=== PATIENT | male | born 1940 | race Caucasian/White ===

== ENCOUNTER 2017-07-22 08:51 | Inpatient (IN) | payer OTHER, MEDICARE ==
[~2017-07-22] VITALS: Ht 185.4 cm; Wt 73.5 kg
[~2017-07-22 08:51] MED LIST: ALLOPURINOL100 MG PO; ASPIRIN CHILDRE81 MG PO; ATENOLOL/HCTZ PO; ATENOLOL25 MG PO; ATENOLOL50 MG PO; ATORVASTATIN CA40 MG PO; BACTRIM DS 8001 TAB PO; CEPHALEXIN500 MG PO; CIPRO 500MG TA500 MG PO; CIPRO250 M1 PO; CIPRO500 M1 PO; CLINDAMYCIN HC300 MG PO; DIFLUCAN150 MG PO; ENALAPRIL10 MG PO; ENALAPRIL5 MG PO; FENOFIBRATE134 MG PO; FLOMAX(MONOGRA0.4 MG PO; FOSAMAX70 M1 PO; IBU800 MG PO; JANUMET 1000 MG1 TAB PO; LIPITOR 40MG40 MG PO; LOFIBRA160 MG PO; MAALOX PLUS30 ML PO; MACROBID100 MG PO; MECLIZINE HCL25 MG PO; MELOXICAM15 MG PO; MILK OF MAGNESI30 ML PO; MIRALAX17 GM PO; MOTRIN800 MG PO; MULTIVITAMIN1 TAB PO; NYSTATIN AND TR1 CR1 TOP; PERCOCET 325 MG1 TA2 PO; PERCOCET 5-3251 EACH PO; PRILOSEC 20MG C20 MG PO; PRILOSEC20 MG PO; SODIUM CHLORI1000 MG PO; STROVITE ONE1 TAB PO; TENORMIN 50MG T50 MG PO; VESICARE 5MG5 MG PO; VITAMIN D250000 UNIT PO; [UNRECOGNIZED DRUG - MIXTURE] PO
[2017-07-22 09:12] LABS: ABSOLUTE BASOPHIL COUNT 0 /CUMM (0.0-0.2); ABSOLUTE EOSINOPHIL COUNT 0.1 /CUMM (0.0-0.7); ABSOLUTE GRANULOCYTE CT 6.7 /CUMM (1.4-6.5); ABSOLUTE LYMPH COUNT 0.5 /CUMM (1.2-3.4); ABSOLUTE MONOCYTE COUNT 0.8 /CUMM (0.10-0.60); BASOPHIL % 0.2 % (0.0-2.0); EOSINOPHIL % 0.7 % (0-5); GRANULOCYTE % 83.5 % (42.2-75.2); HEMATOCRIT 35.6 % (42-52); MEAN CORPUSCULAR HGB 26.6 PG (27.0-31.0); MEAN CORPUSCULAR HGB CONC 33.3 G/DL (33.0-37.0); MEAN CORPUSCULAR VOLUME 79.8 FL (80.0-94.0); MEAN PLATELET VOLUME 7.1 FL (7.4-10.4); PLATELET COUNT 250 /CUMM (130-400); RBC DISTRIBUTION WIDTH 16.7 % (11.5-14.5); RED BLOOD CELL CT 4.46 /CUMM (4.70-6.10)
--- NOTE | 2017-07-22 09:21 | ED INFLUENZA/URI COMPLAINT ---
History of Present Illness General Chief Complaint: General Adult Stated Complaint: COLD S/S Source: patient, EMS Exam Limitations: no limitations Vital Signs & Intake/Output Vital Signs & Intake/Output Vital Signs Date Time Temp Pulse Resp B/P B/P Pulse O2 O2 Flow FiO2 Mean Ox Delivery Rate 07/22 1019 100.7 07/22 1019 100.7 07/22 0950 102.9 04/ 0856 95 07/22 0855 102.9 86 18 107/63 94 Room Air Allergies Coded Allergies: NO KNOWN ALLERGIES (10/18/15) Reconcile Medications Alendronate Sodium (Fosamax) 70 MG TABLET 1 TAB PO QFRI BONES (Reported) in the morning, at least 30 minutes before the first food, beverage, or medication of the day Allopurinol 100 MG TAB 1 TAB PO DAILY GOUT (Reported) Aspirin (Children's Aspirin) 81 MG TAB.CHEW 1 TAB PO DAILY HEART HEALTH ( Reported) Atenolol (Tenormin 50MG Tab) 50 MG TABLET 1 TAB PO DAILY BLOOD PRESSURE Atorvastatin Calcium (Lipitor) 40 MG TAB 1 TAB PO DAILY CHOLESTEROL (Reported ) Ciprofloxacin HCl (Cipro) 250 MG TABLET 1 TAB PO BID UTI Ciprofloxacin HCl (Cipro) 500 MG TABLET 1 TAB PO BID UTI Enalapril Maleate 5 MG TAB 1 TAB PO DAILY HEART (Reported) ERGOCALCIFEROL (VITAMIN D2) (Vitamin D2) 50,000 IU SGL 1 CAP PO QFRI SUPPLEMENT (Reported) Fenofibrate (Lofibra) 160 MG TAB 1 TAB PO DAILY CHOLESTEROL (Reported) Fluconazole (Diflucan) 150 MG TAB 1 TAB PO DAILY uti Magnesium Hydroxide (Milk Of Magnesia 30ML) 30 ML UDC 120 ML PO PRN GI ( Reported) Meclizine HCl 25 MG TABLET 1 TAB PO TIDPRN PRN VERTIGO Meloxicam 15 MG TAB 1 TAB PO DAILY PAIN (Reported) Metformin Hydrochloride/Lucretia (Janumet 1000 MG-50 MG) 1 TAB TAB 1 TAB PO BID NIDDM (Reported) Multivitamin (Multiple Vitamins) 1 TAB TAB 1 TAB PO DAILY SUPPLEMENT ( Reported) Omeprazole (Prilosec) 20 MG ECC 1 CAP PO DAILY GI (Reported) Oxycodone HCl/Acetaminophen (Percocet 5-325 MG Tablet) 1 EACH TABLET 1 TAB PO TID PRN PAIN Polyethylene Glycol 3350 (Miralax) 17 GM PWD 17 GM PO DAILY GI (Reported) mix with water, juice, soda, coffee or tea Sodium Chloride 1 GRA GRA 1 TAB PO BID SUPPLEMENT (Reported) Solifenacin Succinate (Vesicare) 5 MG TAB 1 TAB PO DAILY BLADDER SPASM Tamsulosin Hydrochloride (Flomax) 0.4 MG CAP 1 CAP PO DAILY PROSTATE ( Reported) Triage Note: PT STATES HIS NEIGHBOR HAS BEEN ILL AND HE THINKS HE MAY HAVE CAUGHT SOMETHING. PT STATES HE HAS A DRY COUGH AND DIARRHEA. PT REPORTS HAVING 3 BED SORES ON HIS BUTTOCKS. PT EATING AND DRINKING WITHOUT DIFFICULTY. Triage Nurses Notes Reviewed? yes Onset: Gradual Duration: day(s):, constant, continues in ED, waxing and waning Severity: moderate, severe HPI: Patient presents for evaluation of dry cough and sore throat that began Friday. Patient states that his home health aide was sick and feels he may have caught something from her. Patient states he had an episode of diarrhea last night. Patient denies muscle aches, weakness, headaches, vomiting. Patient currently has a Miller catheter in place so he is unable to state if he is having dysuria. patient's worsens with swallowing. Past History Travel History Traveled to [place] past 21 day No Medical History Any Pertinent Medical History? 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 No Review of Systems Review of Systems Constitutional: Reports: no symptoms. EENTM: Reports: see HPI. Respiratory: Reports: no symptoms. Cardiovascular: Reports: no symptoms. GI: Reports: see HPI. Genitourinary: Reports: no symptoms. Musculoskeletal: Reports: no symptoms. Skin: Reports: no symptoms. Neurological/Psychological: Reports: no symptoms. Hematologic/Endocrine: Reports: no symptoms. Immunologic/Allergic: Reports: no symptoms. All Other Systems: Reviewed and Negative Physical Exam Physical Exam Ears, Nose, Throat: sEE BELOW Comments: Gen.: Well-nourished, well-developed, no acute respiratory distress. Head: Normocephalic, atraumatic. Eyes: Normal inspection bilaterally Ears: Normal inspection bilaterally Nose: Normal inspection Throat/mouth : Tacky mucosa, mild oropharyngeal erythema without exudates or uvula deviation Neck: Supple, full range of motion, no goiter Heart: Regular rate and rhythm, no murmurs rubs or gallops Lungs: Rhonchi in the left lower lung field posteriorly with otherwise good air entry bilaterally Chest: Nontender Back: Normal range of motion Abdomen: Soft, nontender, nondistended, normal bowel sounds Extremities: Normal range of motion grossly, equal radial pulses, no cyanosis clubbing or edema Neurologic: Cranial nerves grossly intact, speech is clear Skin: warm and dry Psychiatric: Calm, cooperative, no apparent delusions or hallucinations Core Measures Sepsis Present: No (PT DID NOT MEET SIRS) Sepsis Focused Exam Completed? No Progress Differential Diagnosis: influenza, pneumonia, pharyngitis, viral syndrome, electrolyte abnormality Plan of Care: Orders Procedure Date/time Status Consistent Carbohydrate 1 07/22 L Complete Consistent Carbohydrate 1 07/22 D Active Misc Message 07/22 112 Active ED Holding Orders 07/22 112 Active Admit to inpatient 07/22 112 Active Vital Signs 07/22 112 Active Code Status 07/22 112 Active Add-on Test (ER Only) 07/22 1050 Active VIRAL CULTURE 07/22 0905 Active LACTIC ACID 07/22 0905 Complete RAPID VIRAL INFLUENZA A 07/22 09 Complete CULTURE,URINE 07/22 09 Active BLOOD CULTURE 07/22 0901 Active URINALYSIS 07/22 09 Complete COMPREHENSIVE METABOLIC PANEL 07/22 09 Complete CBC WITHOUT DIFFERENTIAL 07/22 09 Complete Current Medications Sig/Tk Start time Last Medication Dose Stop Time Status Admin Oseltamivir Phosphate 75 MG BID 07/22 1000 UNVr 07/22 (Tamiflu 75MG) 07/26 0959 0956 Laboratory Tests 07/22/17 0905: Anion Gap 10, Estimated GFR > 60, BUN/Creatinine Ratio 16.0, Glucose 94, Lactic Acid 1.5, Calcium 8.9, Total Bilirubin 0.5, AST 37, ALT 29, Alkaline Phosphatase 46, Total Protein 6.1 L, Albumin 3.2 L, Globulin 2.9, Albumin/Globulin Ratio 1.1, CBC w Diff MAN DIFF ORDERED, RBC 4.46 L, MCV 79.8 L, MCH 26.6 L, MCHC 33.3, RDW 16.7 H, MPV 7.1 L, Gran % 83.5 H, Lymphocytes % 5.9 L, Monocytes % 9.7 H, Eosinophils % 0.7, Basophils % 0.2, Absolute Granulocytes 6.7 H, Absolute Lymphocytes 0.5 L, Absolute Monocytes 0.8 H, Absolute Eosinophils 0.1 , Absolute Basophils 0, Platelet Estimate ADEQUATE, Poikilocytosis 1+, Anisocytosis 1+, Virus Culture Pending, Urinalysis LIGHT H, Urine Color YEL, Urine Clarity HAZY H, Urine pH 6.0, Ur Specific [place] <= 1.005, Urine Protein NEG, Urine Ketones NEG, Urine Nitrite POS H, Urine Bilirubin NEG, Urine Urobilinogen 0.2, Ur Leukocyte Esterase SMALL H, Ur Microscopic SEDIMENT EXAMINED, Urine RBC 1-3, Urine WBC 10-15 H, Ur Epithelial Cells RARE, Urine Bacteria MANY H, Urine Hemoglobin SMALL H, Urine Glucose NEG Microbiology 07/23 939 BLOOD: Blood Culture - RECD 07/22 929 BLOOD: Blood Culture - RECD 07/22 904 URINE ROUT: Urine Culture - RECD 07/22 904 NASOPHARYN: Influenza Virus A & B Rapid Smear - COMP INFLUENZA TYPE A Initial ED EKG: none Comments: 07/22/2017 11:28:33 AM I have ordered IV fluids for the patient's hyponatremia and to provide symptomatic care for his influenza and urinary tract infection. I have treated him with Tamiflu for his influenza and Rocephin for his urinary tract infection. Patient's case discussed with Dr. Duff. Departure Departure Disposition: STILL A PATIENT Condition: Stable Clinical Impression Primary Impression: Influenza A Secondary Impressions: Hyponatremia Urinary tract infection Qualifiers: Urinary tract infection type: catheter-associated UTI Indwelling urinary catheter type: indwelling urethral catheter Encounter type: initial encounter Qualified Codes: T83.511A - Infection and inflammatory reaction due to indwelling urethral catheter, initial encounter; N39.0 - Urinary tract infection , site not specified Referrals: Eloina Duvall MD (PCP/Family) Departure Forms: Customer Survey General Discharge Information Admission Note Spoke With: Essie Duff MD Documentation of Exam: Documentation of any treatments & extenuating circumstances including Concerns Regarding Discharge (functional status, medication knowledge or non-compliance, living conditions, etc.) that warrant an admission rather than observation: Patient presents for sore throat and cold symptoms. He is testing positive for influenza and also has a urinary tract infection and hyponatremia. This is resulted in an overall functionality depleted state and I feel the patient is now a poor candidate for outpatient management. I feel he would have great difficulty in compliance with outpatient treatment given the multiple medical issues he is currently suffering. He very likely would return in worse clinical condition. I feel he requires hospitalization for treatment of his influenza ( Tamiflu and supportive care), treatment for his hyponatremia (IV normal saline infusion, fluid restriction and serial sodium determinations) and treatment for his urinary tract infection (IV antibiotics, monitoring of urinalysis and urine culture). If patient's hyponatremia does not respond to treatment then nephrology consultation to be considered. The patient's urinary tract infection does not respond to treatment then urology or infectious disease consultation should be considered. Given the patient's advanced age and multiple medical comorbidities and multiple current active medical issues, physical therapy consultation should be considered to assess overall functional capacity and ability to ambulate. I feel this patient will require a multiple day hospitalization. Critical Care Note Critical Care Note Critical Care Time: 30-74 min
--- NOTE | 2017-07-22 09:41 | RADIOLOGY REPORT ---
EXAMINATION: XR PORTABLE CHEST CLINICAL INFORMATION: Fever, weakness COMPARISON: CT 09/08/2014 TECHNIQUE: Portable frontal view of the chest was obtained. FINDINGS: There is elevation of the left hemidiaphragm which is new from 2015. Adjacent streaky left basilar atelectasis is noted. The right lung appears grossly clear, though the apex is not well assessed due to patient positioning with overlying chin shadow. No significant pleural effusion or overt pulmonary edema. Cardiac size appears near the upper limits of normal though is suboptimally assessed due to patient rotation. No acute osseous findings are seen. IMPRESSION: Elevated left hemidiaphragm which is new from 2015; considerations include eventration, weakness, or paralysis. Adjacent left basilar atelectasis.
--- NOTE | 2017-07-22 12:58 | History & Physical ---
Joshua Dotson MD,Rangel 07/22/17 1258: General Information and HPI MD Statement: I have seen and personally examined JERROD PEÑALOZA and documented this H&P. 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 According to the patient and his son who was present in the room during the encounter, he was at his state of health past Friday. Patient's visiting nurse came and she is not feeling well. They both felt that patient caught something from her. He started developing some cough and sore throat. He also felt really weak and noticed hoarseness of his voice. Patient also noted some chills and temperature spikes at home. Reveiew of systems positive for one episode of diarrhea that happened last night. Review of system was negative for any headaches, acute visual changes, chest pain, shortness of breath, dyspnea on exertion, palpitations, racing of heart, nausea, vomiting, constipation, rash, recent change in medications, recent use of antibiotics or bilateral lower extremity edema. Allergies/Medications Allergies: Coded Allergies: NO KNOWN ALLERGIES (NONE 07/22/17) Home Med list Alendronate Sodium (Fosamax) 70 MG TABLET 1 TAB PO QFRI BONES (Reported) in the morning, at least 30 minutes before the first food, beverage, or medication of the day Allopurinol 100 MG TABLET 1 TAB PO DAILY GOUT (Reported) Aspirin (Aspirin*) 81 MG TAB.CHEW 1 TAB PO DAILY Heart (Reported) Atenolol 50 MG TABLET 1 TAB PO DAILY BP (Reported) Atorvastatin Calcium 40 MG TABLET 1 TAB PO DAILY Cholesterol (Reported) Enalapril Maleate 5 MG TABLET 1 TAB PO DAILY BP (Reported) Ergocalciferol (Vitamin D2) (Vitamin D2) 50,000 UNIT CAPSULE 1 CAP PO QW LOW VITAMIN (Reported) Fenofibrate,Micronized (Fenofibrate) 134 MG CAPSULE 1 CAP PO DAILY CHOLESTEROL (Reported) Meclizine HCl 25 MG TABLET 1 TAB PO TIDPRN PRN VERTIGO Omeprazole 20 MG CAPSULE.DR 1 CAP PO DAILY GERD (Reported) Oxybutynin Chloride 5 MG TABLET 1 TAB PO BID URINARY RETENTION (Reported) Oxycodone HCl/Acetaminophen (Percocet 5-325 MG Tablet) 1 EACH TABLET 1 TAB PO TID PRN PAIN Sitagliptin Phos/Metformin HCl (Janumet 50-500 MG Tablet) 50 MG-500 MG TABLET 1 TAB PO BID DM (Reported) Sodium Chloride 1,000 MG TABLET.CHARANJIT 1 TAB PO TID low sodium (Reported) Solifenacin Succinate (Vesicare) 5 MG TABLET 1 TAB PO DAILY URNARY ISSUES Tamsulosin HCl 0.4 MG CAP.ER.24H 1 CAP PO DAILY BPH (Reported) Compliance With Home Meds: GOOD Past History Travel History Traveled to [place] past 21 day No Medical History Neurological: NONE EENT: NONE Cardiovascular: hypertension, hyperlipidemia Respiratory: NONE Gastrointestinal: GERD, CONSTIPATION Hepatic: NONE Renal: INDWELLING MILLER CATH Musculoskeletal: chronic back pain, degen joint disease, gout, osteomyelitis of both right third and left second toes Psychiatric: NONE Endocrine: diabetes, GOUT BPH Blood Disorders: NONE Other Medical Hx: cellulitis req admission History of MRSA: Yes History of VRE: No History of CDIFF: No Surgical History Surgical History: PRIOR BEDSIDE DEBREIDMENT Past Family/Social History Family History Relations & Conditions if any MOTHER FH: Alzheimers disease FATHER FH: myocardial infarction Psychosocial History Services at Home: Nursing ETOH Use: denies use Illicit Drug Use: denies illicit drug use Review of Systems Review of Systems Constitutional: Reports: chills, fever. EENTM: Denies: visual changes. Cardiovascular: Denies: chest pain, palpitations. Respiratory: Denies: cough, short of breath. GI: Denies: abdominal pain, nausea, vomiting. Genitourinary: Denies: dysuria. Musculoskeletal: Reports: back pain, joint pain. Skin: Reports: lesions, rash (back). Exam & Diagnostic Data Last 24 Hrs of Vital Signs/I&O Vital Signs Date Time Temp Pulse Resp B/P B/P Pulse O2 O2 Flow FiO2 Mean Ox Delivery Rate 07/22 1303 97 07/22 1218 99.6 77 18 103/59 97 Room Air 07/22 1019 100.7 07/22 1019 100.7 07/22 0950 102.9 04 0856 95 07/22 0855 102.9 86 18 107/63 94 Room Air Intake & Output 07/22 1600 07/22 0800 07/22 0000 Intake Total 250 Output Total 850 Balance -600 Intake, Oral 250 Output, Urine 850 Patient 180 lb Weight Weight Reported by Patient Measurement Method Physical Exam General Appearance Alert, Oriented X3, Cooperative, No Acute Distress Skin skin breakdown lower back and buttock area HEENT Atraumatic Neck No JVD Cardiovascular Regular Rate, Normal S1, Normal S2, No Murmurs Lungs Clear to Auscultation, Normal Air Movement Abdomen Normal Bowel Sounds, Soft, No Tenderness, No Hepatospenomegaly, suprapubic Miller catheter in place Neurological Normal Speech, Normal Tone, Sensation Intact Extremities right and left-sided digit amputation secondary to osteomyelitis Vascular Normal Pulses Last 24 Hrs of Labs/Ignacio: Laboratory Tests 07/22/17 09: Anion Gap 10, Estimated GFR > 60, BUN/Creatinine Ratio 16.0, Glucose 94, Lactic Acid 1.5, Calcium 8.9, Total Bilirubin 0.5, AST 37, ALT 29, Alkaline Phosphatase 46, Total Protein 6.1 L, Albumin 3.2 L, Globulin 2.9, Albumin/Globulin Ratio 1.1, CBC w Diff MAN DIFF ORDERED, RBC 4.46 L, MCV 79.8 L, MCH 26.6 L, MCHC 33.3, RDW 16.7 H, MPV 7.1 L, Gran % 83.5 H, Lymphocytes % 5.9 L, Monocytes % 9.7 H, Eosinophils % 0.7, Basophils % 0.2, Absolute Granulocytes 6.7 H, Absolute Lymphocytes 0.5 L, Absolute Monocytes 0.8 H, Absolute Eosinophils 0.1 , Absolute Basophils 0, Platelet Estimate ADEQUATE, Poikilocytosis 1+, Anisocytosis 1+, Virus Culture Pending, Urinalysis LIGHT H, Urine Color YEL, Urine Clarity HAZY H, Urine pH 6.0, Ur Specific [place] <= 1.005, Urine Protein NEG, Urine Ketones NEG, Urine Nitrite POS H, Urine Bilirubin NEG, Urine Urobilinogen 0.2, Ur Leukocyte Esterase SMALL H, Ur Microscopic SEDIMENT EXAMINED, Urine RBC 1-3, Urine WBC 10-15 H, Ur Epithelial Cells RARE, Urine Bacteria MANY H, Urine Hemoglobin SMALL H, Urine Glucose NEG Microbiology 07/23 939 BLOOD: Blood Culture - RECD 07/22 929 BLOOD: Blood Culture - RECD 07/22 904 URINE ROUT: Urine Culture - RECD 07/22 904 NASOPHARYN: Influenza Virus A & B Rapid Smear - COMP INFLUENZA TYPE A Diagnostic Data CXR Results Elevated left hemidiaphragm which is new from 2015; considerations include Uniphyl recommended was to people outside hematocrit eventration, weakness, or paralysis. Adjacent left basilar atelectasis. Assessment/Plan Assessment: 77-year-old male with past medical history of hypertension, hyperlipidemia, diabetes mellitus, chronic back pain secondary to lumbar fusion multiple back surgeries (dependent on hoveround for movement), history of MRSA, 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 Vitals in emergency department patient afebrile with a MAXIMUM TEMPERATURE of 102.9, no tachycardia, no tachypnea, systolic blood pressure 1070 63 on admission which improved to 140/60- after 1 L of normal saline, oxygen saturation of 94-97% on room air. Labs significant for no leukocytosis, left shift 83.5 granulocytes but no bandemia, chronic anemia hemoglobin 11.9 hematocrit 35.6, low MCV, chronic hyponatremia sodium of 127, potassium 4, chloride 95, anion gap 10, BUN 8 and creatinine 0.5, UA positive for 10-15 WBCs, bacteria and positive nitrite. Positive influenza A Patient was admitted on general medicine so for the management of following problems Positive influenza A Patient has multiple comorbidities including age more than 65, and history of diabetes mellitus. He's found to have positive influenza A in emergency department. Patient was started on Tamiflu. We will adequately hydrate the patient and keeping him on droplet precautions. Chest x-ray also showed adjacent streaky left basilar atelectasis left lung. Patient does not have any signs of We will hold off on any antibiotics for now. Patient does have high- grade fever but there is no tachycardia, tachypnea, hypotension, leukocytosis or leukopenia therefore he does not meet the criteria for sepsis on admission. Decubitus ulcer, unstageable Patient has skin breakdown and unstageable decubitus ulcer at the gluteal region . Wound care was consulted. Patient will have regular dressing with collagenase and Xeroform. In the past patient's wound grew MRSA. [id number] diabetes mellitus Last hemoglobin A1c 5.4 in September 2016. We will repeat another hemoglobin A1c. We will currently start the patient on insulin sliding scale and check fingersticks. Chronic hyponatremia Patient has past medical history significant for hyponatremia. We will obtain urine lites, urine osmolarity and serum osmolarity. We'll continue the patient' s sodium chloride tablets. Pyuria/urinary retention Patient has chronic suprapubic indwelling folly catheter that is changed monthly. No leukocytosis. We'll hold off on antibiotics for now urine culture pending. Chronic medical conditions, GERD, hyperlipidemia, essential hypertension Continue with omeprazole, statin/fenofibrates and atenolol and enalapril Patient is full code Patient is on subcutaneous heparin for DVT prophylaxis Patient is on pain pathway Patient is on diabetic diet As Ranked By This Provider Problem List: 1. Hyponatremia 2. Influenza A Core Measures/Misc (01/05) Acute Coronary Syndrome ACS Diagnosis: No Congestive Heart Failure Congestive Heart Failure Diagnosis No Cerebrovascular Accident CVA/TIA Diagnosis: No VTE (View Protocol) VTE Risk Factors Immobility No Mechanical VTE Prophylaxis d/t N/A MechProphylax Ordered No VTE Pharm Prophylaxis d/t NA PharmProphylax ordered Sepsis (View protocol) Sepsis Present: No Lyle Torres MD 07/22/17 7366: Attending MD Review Statement Attending Statement Attending MD Statement: examined this patient, discuss w/resident/PA/LEAD BI DEVELOPER, agreed w/resident/PA/LEAD BI DEVELOPER, reviewed EMR data (avail), reviewed images, amended to note Attending Assessment/Plan: The patient is a 77 yo male with h/o HTN, HL ,DM2, chronic back pain (s/p fusion/surgeries), h/o osteomyelitis of foot (s/p amputation, MRSA), chronic miller catheter (h/o growing ESBL E coli) who presented in ED with c/o cough, sore throat, fever to 102 and malaise/weakness. Found to be flu positive ( influenza A) in ED along with some pyuria and possible UTI. Denies urinary symptoms. Does note some dyspnea w/o chest pain. Cough has been non-productive. Physical Exam: VS: T 102.9-99.6, P 77, R 18, BP 103/59, PO 97% RA HEENT: eyes- PERRLA, EOMI padmini- dry mucosa Neck: no JVD/bruits Chest: diffuse coarse rhonchi, no wheeze Cor: RRR nl S1, S2 w/o murm Abd: BS+, soft, NT Ext: no edema, pulses 1+, s/p left toe amp Neuro: alert & oriented x 3, non-focal exam, distal LE decreased sensory noted Labs/Tests- as above Impression/Plan: #Acute Influenza A Infection- with coarse rhonchi, significant cough. Fever and cough coincided and he may have had exposure at home. Also receive Ceftriaxone IV in ED. Plan: Admit to medical floor for close respiratory monitoring. Begin Tamiflu as per protocol Droplet precautions. [place] culture. #Pyuria/Urinary Retention- patient with chronic miller that is changed monthly. Has h/o several bacteria growing from prior cultures including ESBL Ecoli. No clear urinary symptoms. Fever may be secondary to influenza. No evidence of sepsis. Plan: Await urine culture- will hold further antibiotics. #Hyponatremia- has been chronic. Usually runs 130 and is now 127. Plan: Will continue salt tablets and follow. #Essential HTN- on Atenolol, Enalapril. BP slightly low, most likely to diminished po intake. Plan: Will continue meds if BP is OK. #DM2- on Sitagliptin/Metformin (Angie). Plan: Follow glucoscans and sliding scale insulin while in hospital. #GERD- on Omeprazole. Plan: Continue Omeprazole. #Hyperlipidemia- on Atorvastatin/Fenofibrate. Plan: Continue Atorvastatin/Fenofibrate. #Osteoporosis- on Alendronate. Plan: Will hold Alendronate while in hospital.
[2017-07-22] MEDS ORDERED: ALLOPURINOL100 M1 PO (14:16)
[2017-07-22] MEDS ORDERED: ENALAPRIL MALEAT5 M1 PO (14:16)
[2017-07-22] MEDS ORDERED: OXYBUTYNIN CHLOR5 M2 PO (14:16)
[2017-07-22] MEDS ORDERED: TAMSULOSIN HCL0.4 M1 PO (14:17)
[2017-07-22] MEDS ORDERED: OMEPRAZOLE20 M2 PO (14:17)
[2017-07-22] MEDS ORDERED: ATORVASTATIN CA40 M1 PO (14:17)
[2017-07-22] MEDS ORDERED: ATENOLOL50 M1 PO (14:17)
[2017-07-22 14:18] VITALS: BP 140/62
[2017-07-22] MEDS ORDERED: FENOFIBRATE134 M1 PO (14:18)
[2017-07-22] MEDS ORDERED: JANUMET 50-5001 EACH PO (14:18)
[2017-07-22] MEDS ORDERED: ASPIRIN81 M4 PO (14:19)
--- NOTE | 2017-07-22 16:39 | Admission Certification ---
Admission Certification Certification Statement - As attending physician, I certify that at the time of - admission, based on clinical presentation, severity of - symptoms, need for further diagnostic testing and - therapeutic interventions, and risk of adverse outcomes - without in-hospital treatment, in my clinical assessment, - this patient requires an acute hospital stay for a minimum - of two nights or longer. I have also considered psychsocial - factors such as support system, advanced age, financial - issues, cognitive issues, and failed out-patient treatments, - past re-admission history, safety of patient, and lack of - compliance as applicable. Specific rationale supporting this admission is: The patient presents with fever 102+, cough and congestion. Found to have acute influenza A, weakness, chronic abrams catheter with possible infection. Admitted for respiratory monitoring, received IV Abx in ED for possible UTI, baum culture.
[2017-07-22] MEDS ORDERED: VESICARE5 M1 PO (16:44)
[2017-07-22 21:16] VITALS: BP 136/66
[2017-07-23 06:20] VITALS: BP 112/66
--- NOTE | 2017-07-23 07:46 | PN- Housestaff ---
Ul Mauri STORY,[facility] 07/23/17 0746: Subjective Follow-up For: Acute Influenza A Infection Pyuria/Urinary Retention Chronic hyponatremia Complaints: no complaints Subjective: Patient remained afebrile overnight. No episodes of tachycardia or tachypnea. Systolic blood pressure 112 to 130s and diastolic in 60s, oxygen saturation of 95-96% on room air Review of Systems Constitutional: Denies: chills, fever. EENTM: Denies: visual changes. Cardiovascular: Denies: chest pain, palpitations. Respiratory: Denies: cough, short of breath. Gastrointestinal: Denies: abdominal pain, nausea, vomiting. Genitourinary: Denies: dysuria. Musculoskeletal: Denies: back pain. Objective Last 24 Hrs of Vital Signs/I&O Vital Signs Date Time Temp Pulse Resp B/P B/P Pulse O2 O2 Flow FiO2 Mean Ox Delivery Rate 07/23 0620 98.4 69 18 112/66 95 Room Air 07/22 2116 98.1 66 18 136/66 96 Room Air 07/22 2051 72 136/66 07/22 2050 72 136/66 07/22 1418 98.7 90 20 140/62 94 Room Air 07/22 1332 97 Room Air Room Air 07/22 1303 97 07/22 1218 99.6 77 18 103/59 97 Room Air / 1019 100.7 / 1019 100.7 / 0950 102.9 / 0856 95 / 0855 102.9 86 18 107/63 94 Room Air Intake & Output 07/23 0800 07/23 0000 03 1600 Intake Total 1500 250 Output Total 2150 5500 1650 Balance -2150 -4000 -1400 Intake, Oral 1500 250 Number 0 0 Bowel Movements Output, Urine 2150 5500 1650 Patient 192 lb 192 lb Weight Weight Bed scale Bed scale Measurement Method Physical Exam General Appearance: Alert, Oriented X3, Cooperative, No Acute Distress Skin: skin breakdown lower back and buttock area HEENT: Atraumatic Neck: No JVD Cardiovascular: Regular Rate, Normal S1, Normal S2, No Murmurs Lungs: Normal Air Movement, Congested with occasional rales Abdomen: Normal Bowel Sounds, Soft, No Tenderness, suprapubic Giraldo catheter in place Neurological: Normal Speech, Normal Tone, Sensation Intact Extremities: No Edema, right and left-sided digit amputation secondary to osteomyelitis Current Medications: Current Medications Sig/Tk Start time Last Medication Dose Route Stop Time Status Admin Acetaminophen 650 MG Q4P PRN 07/22 1530 AC PO Acetaminophen 0 .STK-MED ONE 07/22 0952 DC IV Acetaminophen 1,000 MG ONCE ONE 07/22 0930 DC 07/22 N/A 1 UNIT IV 07/22 0944 0950 Alendronate Sodium 70 MG QFRI 07/25 0700 AC PO Allopurinol 100 MG DAILY 07/22 1428 AC 07/22 PO 2052 Aspirin 81 MG DAILY 07/23 1000 AC PO Atenolol 50 MG DAILY 07/22 1429 AC 07/22 PO 205 Atorvastatin Calcium 40 MG 1700 07/22 1700 AC 07/22 PO 2033 Benzonatate 100 MG TID 07/22 1612 AC 07/22 PO 2101 Ceftriaxone Sodium 0 .STK-MED ONE 07/22 1119 DC .ROUTE Ceftriaxone Sodium 1,000 MG ONCE ONE 07/22 1100 DC 07/22 IV 07/22 1101 1116 Collagenase 1 BRYCE DAILY 07/22 1430 AC 07/22 TOP 1645 Fenofibrate 145 MG DAILY 07/23 1000 AC PO Guaifenesin/ 10 ML Q6P PRN 07/22 1615 AC Dextromethorphan PO Heparin Sodium 5,000 UNIT Q8 07/22 1524 AC 07/23 (Porcine) SC 0613 Insulin Aspart 0 TIDAC 07/22 1700 AC SC Lisinopril 5 MG DAILY 07/23 1000 AC PO Non-Formulary 0 SEE ADMIN CRITERIA 07/22 1430 CAN Medication ANY Omeprazole 20 MG DAILY AC 07/22 1431 AC 07/23 PO 0613 Oseltamivir Phosphate 75 MG BID 07/22 1000 AC 07/22 PO 07/26 0959 2101 Oxybutynin Chloride 5 MG BID 07/22 1431 AC 07/22 PO 2100 Sodium Chloride 1,000 MG TID 07/22 1600 AC 07/22 PO 2102 Sodium Chloride 1,000 ML BOLUS ONE 07/22 0930 DC 07/22 IV 07/22 1129 0950 Tamsulosin HCl 0.4 MG DAILY 07/22 1431 AC 07/22 PO 2050 Last 24 Hrs of Lab/Ignacio Results Last 24 Hrs of Labs/Mics: Laboratory Tests 07/23/17 0711: Sodium Pending, Potassium Pending, Chloride Pending, Carbon Dioxide Pending, Anion Gap Pending, BUN Pending, Creatinine Pending, BUN/Creatinine Ratio Pending 07/22/17 1618: Anion Gap 11, Estimated GFR > 60, BUN/Creatinine Ratio 16.0 07/22/17 1606: Urine Osmolality 165 L, Ur Random Creatinine 11.1, Ur Random Sodium 36, Ur Random Potassium 7.8, Fraction Sodium Excret 1.3 H 07/22/17 0905: Anion Gap 10, Estimated GFR > 60, BUN/Creatinine Ratio 16.0, Glucose 94, Hemoglobin A1c Pending, Serum Osmolality 264 L, Lactic Acid 1.5, Calcium 8.9, Total Bilirubin 0.5, AST 37, ALT 29, Alkaline Phosphatase 46, Total Protein 6.1 L, Albumin 3.2 L, Globulin 2.9, Albumin/Globulin Ratio 1.1, CBC w Diff MAN DIFF ORDERED, RBC 4.46 L, MCV 79.8 L, MCH 26.6 L, MCHC 33.3, RDW 16.7 H, MPV 7.1 L, Gran % 83.5 H, Lymphocytes % 5.9 L, Monocytes % 9.7 H, Eosinophils % 0.7, Basophils % 0.2, Absolute Granulocytes 6.7 H, Absolute Lymphocytes 0.5 L, Absolute Monocytes 0.8 H, Absolute Eosinophils 0.1, Absolute Basophils 0, Platelet Estimate ADEQUATE, Poikilocytosis 1+, Anisocytosis 1+, Virus Culture Pending, Urinalysis LIGHT H, Urine Color YEL, Urine Clarity HAZY H, Urine pH 6.0, Ur Specific [place] <= 1.005, Urine Protein NEG, Urine Ketones NEG, Urine Nitrite POS H, Urine Bilirubin NEG, Urine Urobilinogen 0.2, Ur Leukocyte Esterase SMALL H, Ur Microscopic SEDIMENT EXAMINED, Urine RBC 1-3, Urine WBC 10 -15 H, Ur Epithelial Cells RARE, Urine Bacteria MANY H, Urine Hemoglobin SMALL H, Urine Glucose NEG Microbiology 07/22 151 LOWER RESP: Respiratory Culture - COLB 07/22 151 LOWER RESP: Gram Stain - COLB 07/23 939 BLOOD: Blood Culture - RECD 07/22 929 BLOOD: Blood Culture - RECD 07/22 904 URINE ROUT: Urine Culture - RECD 07/22 904 NASOPHARYN: Influenza Virus A & B Rapid Smear - COMP INFLUENZA TYPE A Lines/Diet/Fluids Fluids/Infusions: none Lines: peripheral lines Restraints: none Assessment/Plan Assessment: 77-year-old male with past medical history of hypertension, hyperlipidemia, diabetes mellitus, chronic back pain secondary to lumbar fusion multiple back surgeries (dependent on hoveround for movement), history of MRSA, 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 Patient was admitted on general medicine so for the management of following problems Positive influenza A Patient has multiple comorbidities including age more than 65, and history of diabetes mellitus. He's found to have positive influenza A in emergency department. Patient was started on Tamiflu. We will adequately hydrate the patient and keeping him on droplet precautions. Chest x-ray also showed adjacent streaky left basilar atelectasis left lung. Patient does not have any signs of We will hold off on any antibiotics for now. Did not have any high- grade fever overnight, no tachycardia, tachypnea, hypotension, leukocytosis or leukopenia therefore he does not meet the criteria for sepsis on admission. Decubitus ulcer, unstageable Patient has skin breakdown and unstageable decubitus ulcer at the gluteal region . Wound care was consulted. Patient will have regular dressing with collagenase and Xeroform. In the past patient's wound grew MRSA. Epi-gkvttte-trzzxihtm diabetes mellitus Last hemoglobin A1c 5.4 in September 2016. We will repeat another hemoglobin A1c. We will currently start the patient on insulin sliding scale and check fingersticks. Chronic hyponatremia Patient has past medical history significant for hyponatremia. Serum osmolality low, low urine osmolality, and fractional excretion of sodium 1.3. Patient has euvolemic hypotonic hyponatremia. We'll continue the patient's sodium chloride tablets. Pyuria/urinary retention Patient has chronic suprapubic indwelling folly catheter that is changed monthly. No leukocytosis. We'll hold off on antibiotics for now urine culture growing gram negative rods, which can be colonization. Urology consult placed. Chronic medical conditions, GERD, hyperlipidemia, essential hypertension Continue with omeprazole, statin/fenofibrates and atenolol and enalapril Patient is full code Patient is on subcutaneous heparin for DVT prophylaxis Patient is on pain pathway Patient is on diabetic diet Problem List: 1. Hyponatremia 2. Influenza A 3. Decubitus ulcer Pain Ratin Pain Location: NA Pain Goal: Pain 4 or less Pain Plan: Continue current pain medications Tomorrow's Labs & Rationales: BEP IF sodium has to change significantly DVT/Prophylaxis: pharmacological Lyle Torres MD 07/23/17 2229: Attending MD Review Statement Attending Statement Attending MD Statement: examined this patient, discuss w/resident/PA/ROLLER PRINTER, agreed w/resident/PA/ROLLER PRINTER, reviewed EMR data (avail), discussed with nursing, discussed with case mgmt, amended to note Attending Assessment/Plan: The patient appears slightly improved today. Still with coarse rhonchi. No urinary symptoms. Giraldo is due to be changed. Will contact Urology to see if they wish us to change here, or whether urology is needed. Await final urine cultures, however suspect colonization. Continue Tamiflu and monitory symptoms. The patient has home care set-up and prefers to return home when able. Case management contacting his home agency.
[2017-07-23 14:02] VITALS: BP 100/64
[2017-07-23 22:00] VITALS: BP 98/50
[2017-07-24 00:37] VITALS: BP 96/56
[2017-07-24 07:27] VITALS: BP 106/56
--- NOTE | 2017-07-24 07:38 | PN- Housestaff ---
See Addendum Subjective Follow-up For: Acute Influenza A Infection Pyuria/Urinary Retention Chronic hyponatremia Complaints: no complaints Subjective: Patient remained afebrile overnight. No episodes of tachycardia or tachypnea. Systolic blood pressure 96 to 106 and diastolic in 50-60s, oxygen saturation of 94-95% on room air Review of Systems Constitutional: Denies: chills, fever. EENTM: Denies: visual changes. Cardiovascular: Denies: chest pain, palpitations. Respiratory: Reports: cough. Denies: short of breath. Gastrointestinal: Denies: abdominal pain, nausea. Musculoskeletal: Reports: back pain. Denies: joint pain. Objective Last 24 Hrs of Vital Signs/I&O Vital Signs Date Time Temp Pulse Resp B/P B/P Pulse O2 O2 Flow FiO2 Mean Ox Delivery Rate 07/24 0727 97.9 53 20 106/56 95 Room Air 07/24 0037 98.3 58 20 96/56 94 Room Air 07/24 0000 Room Air 07/23 2200 97.9 50 20 98/50 97 Room Air 07/23 1402 97.4 75 20 100/64 96 Room Air 07/23 1231 98.4 69 18 112/66 04/04 1231 98.4 69 18 112/66 04/04 1052 98.4 69 18 112/66 Intake & Output 07/24 1600 /05 0800 07/24 0000 Intake Total 220 1000 Output Total 2050 2500 Balance -1830 -1500 Intake, Oral 220 1000 Output, Urine 2049 2500 Patient 165 lb Weight Physical Exam General Appearance: Alert, Oriented X3, Cooperative, No Acute Distress Skin: skin breakdown lower back and buttock area HEENT: Atraumatic Neck: No JVD Cardiovascular: Regular Rate, Normal S1, Normal S2, No Murmurs Lungs: occasional rales at the lung bases Abdomen: Normal Bowel Sounds, Soft, No Tenderness, suprapubic Giraldo catheter in place Neurological: Normal Speech, Normal Tone, Sensation Intact Extremities: No Cyanosis, No Edema, right and left-sided digit amputation secondary to osteomyelitis Vascular: Normal Pulses Current Medications: Current Medications Sig/Tk Start time Last Medication Dose Route Stop Time Status Admin Acetaminophen 650 MG Q4P PRN 07/22 1530 AC 07/24 PO 0553 Allopurinol 100 MG DAILY 07/22 1428 AC 07/23 PO 1053 Aspirin 81 MG DAILY 07/23 1000 AC 07/23 PO 1053 Atenolol 50 MG DAILY 07/22 1429 AC 07/23 PO 1231 Atorvastatin Calcium 40 MG 1700 07/22 1700 AC 07/23 PO 1745 Benzonatate 100 MG TID 07/22 1612 AC 07/23 PO 2104 Collagenase 1 BRYCE DAILY 07/22 1430 AC 07/23 TOP 1053 Fenofibrate 145 MG DAILY 07/23 1000 AC 07/23 PO 1052 Guaifenesin 10 ML .STK-MED ONE 07/24 0004 DC PO 07/24 0005 Guaifenesin/ 10 ML Q6P PRN 07/22 1615 AC 07/24 Dextromethorphan PO 0008 Heparin Sodium 5,000 UNIT Q8 07/22 1524 AC 07/24 (Porcine) SC 0556 Insulin Aspart 0 TIDAC 07/22 1700 AC SC Lisinopril 5 MG DAILY 07/23 1000 AC 07/23 PO 1052 Omeprazole 20 MG DAILY AC 07/22 1431 AC 07/24 PO 0553 Oseltamivir Phosphate 75 MG BID 07/22 1000 AC 07/23 PO 07/26 0959 2104 Oxybutynin Chloride 5 MG BID 07/22 1431 AC 07/23 PO 2104 Sodium Chloride 1,000 MG TID 07/22 1600 AC 07/23 PO 2104 Tamsulosin HCl 0.4 MG DAILY 07/22 1431 AC 07/23 PO 1231 Lines/Diet/Fluids Fluids/Infusions: none Lines: peripheral lines Restraints: none Assessment/Plan Assessment: 77-year-old male with past medical history of hypertension, hyperlipidemia, diabetes mellitus, chronic back pain secondary to lumbar fusion multiple back surgeries (dependent on hoveround for movement), history of MRSA, 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 Patient was admitted on general medicine so for the management of following problems Positive influenza A Patient has multiple comorbidities including age more than 67, and history of diabetes mellitus. He's found to have positive influenza A in emergency department. Patient was started on Tamiflu, currently day 3. We will adequately hydrate the patient and keeping him on droplet precautions. Chest x-ray also showed adjacent streaky left basilar atelectasis left lung. Patient does not have any signs of We will hold off on any antibiotics for now. Did not have any high-grade fever overnight, no tachycardia, tachypnea, hypotension, leukocytosis or leukopenia therefore he does not meet the criteria for sepsis on admission. Decubitus ulcer, unstageable Patient has skin breakdown and unstageable decubitus ulcer at the gluteal region . Wound care was consulted. Patient will have regular dressing with collagenase and Xeroform. In the past patient's wound grew MRSA. Hgz-iurbxlc-rtuldtznx diabetes mellitus Last hemoglobin A1c 5.4 in September 2016. We will repeat another hemoglobin A1c. We will keep the patient on insulin sliding scale and check fingersticks. Chronic hyponatremia Patient has past medical history significant for hyponatremia. Serum osmolality low, low urine osmolality, and fractional excretion of sodium 1.3. Patient has euvolemic hypotonic hyponatremia. We'll continue the patient's sodium chloride tablets. Pyuria/urinary retention Patient has chronic suprapubic indwelling folly catheter that is changed monthly. No leukocytosis. We'll hold off on antibiotics for now urine culture growing gram negative rods, which can be colonization. Urology consult pending. Chronic medical conditions, GERD, hyperlipidemia, essential hypertension Continue with omeprazole, statin/fenofibrates and atenolol and enalapril Patient is full code Patient is on subcutaneous heparin for DVT prophylaxis Patient is on pain pathway Patient is on diabetic diet Problem List: 1. Hyponatremia 2. Influenza A 3. Suprapubic catheter dysfunction Pain Ratin Pain Location: BUTTOCK AREA Pain Goal: Pain 4 or less Pain Plan: Continue current pain meds Tomorrow's Labs & Rationales: Not needed DVT/Prophylaxis: pharmacological
--- NOTE | 2017-07-24 07:38 | Discharge Summary ---
Visit Information Visit Dates Admission Date: 07/22/17 Discharge Date: 07/27/17 Hospital Course Course Attending Physician: Lyle Torres MD Primary Care Physician: Eloina Duvall MD Consulting Request: Consulting Specialty: Urology Consulting Physician: Dr. Elizalde Reason for Consult: Giraldo catheter change Hospital Course: 77-year-old male with past medical history of hypertension, hyperlipidemia, diabetes mellitus, chronic back pain secondary to lumbar fusion multiple back surgeries (dependent on hoveround for movement), history of MRSA, 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 Vitals in emergency department patient afebrile with a MAXIMUM TEMPERATURE of 102.9, no tachycardia, no tachypnea, systolic blood pressure 1070 63 on admission which improved to 140/60- after 1 L of normal saline, oxygen saturation of 94-97% on room air. Labs significant for no leukocytosis, left shift 83.5 granulocytes but no bandemia, chronic anemia hemoglobin 11.9 hematocrit 35.6, low MCV, chronic hyponatremia sodium of 127, potassium 4, chloride 95, anion gap 10, BUN 8 and creatinine 0.5, UA positive for 10-15 WBCs, bacteria and positive nitrite. Positive influenza A Patient was admitted on general medicine so for the management of following problems Positive influenza A Patient has multiple comorbidities including age more than 67, and history of diabetes mellitus. He's found to have positive influenza A in emergency department. Patient was started on Tamiflu. We adequately hydrated the patient and keeping him on droplet precautions. Chest x-ray also showed adjacent streaky left basilar atelectasis left lung. Patient did not have any signs of infection, therefore we held off off on any antibiotics during hospitalization. He did not meet the criteria for sepsis on admission. Decubitus ulcer, unstageable Patient had skin breakdown and unstageable decubitus ulcer at the gluteal region. Wound care was consulted. Patient will have regular dressing with collagenase and Xeroform. In the past patient's grew MRSA from wound culture. Patient was placed on contact precautions for MRSA. Cky-pgtsotn-fjizgtwxh diabetes mellitus Last hemoglobin A1c 5.4 in September 2016. Repeat hemoglobin A1c was 6.0. We kept the patient on insulin sliding scale and check fingersticks. Chronic hyponatremia Patient has past medical history significant for hyponatremia. Serum osmolality low, low urine osmolality, and fractional excretion of sodium 1.3. Patient had euvolemic hypotonic hyponatremia. We continued the patient's sodium chloride tablets. Pyuria/urinary retention Patient has chronic suprapubic indwelling folly catheter that is changed monthly. No leukocytosis on CBC. We'll had off on antibiotics and attributed due to gram-negative rods in urine to colonization. Urology consult was placed, and his Giraldo catheter changed on 07/24/17. He will F/U with Dr. Elizalde in 1 month for next suprapubic catheter change. Chronic medical conditions, GERD, hyperlipidemia, essential hypertension Be continued with omeprazole, statin/fenofibrates and atenolol and enalapril Patient is full code Patient is on subcutaneous heparin for DVT prophylaxis Patient is on pain pathway Patient is on diabetic diet Complications: None Allergies: Coded Allergies: NO KNOWN ALLERGIES (NONE 07/22/17) Significant Procedures: SERVICE DATE: 07/22/17 EXAM TYPE: RAD - XRY-PORTABLE CHEST XRAY FINDINGS: There is elevation of the left hemidiaphragm which is new from 2014. Adjacent streaky left basilar atelectasis is noted. The right lung appears grossly clear, though the apex is not well assessed due to patient positioning with overlying chin shadow. No significant pleural effusion or overt pulmonary edema. Cardiac size appears near the upper limits of normal though is suboptimally assessed due to patient rotation. No acute osseous findings are seen. IMPRESSION: Elevated left hemidiaphragm which is new from 2014; considerations include eventration, weakness, or paralysis. Adjacent left basilar atelectasis. Disposition Summary Disposition Principal Diagnosis: Positive influenza A Unstageable decubitus ulcer on buttock area Pyuria/bacteriuria and urinary retention Acute on chronic hyponatremia Additional Diagnosis: History of [id number]-qdatigeyn diabetes mellitus Chronic indwelling folly catheter Chronic medical conditions, GERD, hyperlipidemia, essential hypertension Discharge Disposition: home health services Discharge Instructions General Discharge Information Code Status: Full Code Patient's Diet: Diabetic diet Patient's Activity: As tolerated Follow-Up Instructions/Appts: Follow-up with PCP after discharge Follow-up with urology after discharge in one month for F/U. Your suprpubic tube was changed on 07/24/17 Medications at Discharge Discharge Medications: Continue taking these medications: Alendronate Sodium (Fosamax) 70 MG TABLET 1 Tablet ORAL EVERY FRIDAY Instructions: in the morning, at least 30 minutes before the first food, beverage, or medication of the day Comments: DID NOT TAKE IN THE HOSPITAL Sodium Chloride (Sodium Chloride) 1,000 MG TABLET.CHARANJIT 1 Tablet ORAL THREE TIMES DAILY Comments: Last Taken:07/27/17 Time:0900 AM Ergocalciferol (Vitamin D2) (Vitamin D2) 50,000 UNIT CAPSULE 1 Capsule ORAL Once a Week Comments: DID NOT ADMINISTER AT THE HOSPITAL Meclizine HCl (Meclizine HCl) 25 MG TABLET 1 Tablet ORAL THREE TIMES A DAY NEEDED as needed for VERTIGO Qty = 30 Comments: DID NOT ADMINISTER AT THE HOSPITAL Oxybutynin Chloride (Oxybutynin Chloride) 5 MG TABLET 1 Tablet ORAL TWICE DAILY Qty = 56 Comments: Last Taken:07/27/17 Time:0900 AM Enalapril Maleate (Enalapril Maleate) 5 MG TABLET 1 Tablet ORAL DAILY Qty = 28 Comments: Last Taken:07/27/17 Time:0900 AM USED LISINOPRIL SUBSTIUTION Allopurinol (Allopurinol) 100 MG TABLET 1 Tablet ORAL DAILY Qty = 28 Comments: Last Taken:07/27/17 Time:0900 AM Atenolol (Atenolol) 50 MG TABLET 1 Tablet ORAL DAILY Qty = 28 Comments: Last Taken:07/27/17 Time:0900 AM Tamsulosin HCl (Tamsulosin HCl) 0.4 MG CAP.ER.24H 1 Capsule ORAL DAILY Qty = 28 Comments: Last Taken:07/27/17 Time:0900 AM Atorvastatin Calcium (Atorvastatin Calcium) 40 MG TABLET 1 Tablet ORAL DAILY Qty = 28 Comments: Last Taken:07/26/17 Time:1600 Omeprazole (Omeprazole) 20 MG CAPSULE.DR 1 Capsule ORAL DAILY Qty = 28 Comments: Last Taken:07/27/17 Time:0600 AM Fenofibrate,Micronized (Fenofibrate) 134 MG CAPSULE 1 Capsule ORAL DAILY Qty = 28 Comments: Last Taken:07/27/17 Time:0900 AM Sitagliptin Phos/Metformin HCl (Janumet 50-500 MG Tablet) 50 MG-500 MG TABLET 1 Tablet ORAL TWICE DAILY Qty = 56 Comments: DID NOT ADMINISTER AT THE HOSPITAL Aspirin (Aspirin*) 81 MG TAB.CHEW 1 Tablet ORAL DAILY Comments: Last Taken:07/27/17 Time:0900 AM Start taking the following new medications: Nystatin (Nystatin) 100,000 UNIT/GRAM CREAM..G. 1 Application On the skin THREE TIMES DAILY Qty = 15 No Refills Instructions: apply to affected area(s). Comments: Last Taken:07/27/17 Time:0900 AM Copies To: Eloina STORY,Lissette Elizalde MD,Marcel Carver MD Review Statement Documenting Attending: Lyle Torres MD Other Findings: The patient was seen by me prior to discharge and by Dr. Delgadillo for last 2 days of hospital stay. Agree with the plan of care as outlined.
--- NOTE | 2017-07-24 08:56 | Patient Discharge Instructions ---
Discharge Instructions General Discharge Information You were seen/treated for: Positive influenza A Unstageable decubitus ulcer on buttock area Pyuria/bacteriuria and urinary retention Acute on chronic hyponatremia Other wound care: Please have regular dressing with collagenase and Xeroform Special Instructions: Follow-up with PCP after discharge Follow-up with urology after discharge Diet Continue normal diet: No Recommended Diet: Diabetic Activity Activity Self Limited: Yes Acute Coronary Syndrome Inclusion Criteria At DC or during hospital stay patient has or had the following: ACS DIAGNOSIS No Discharge Core Measures Meds if any: Prescribed or Continued at Discharge Meds if any: NOT Prescribed or Continued at Discharge Congestive Heart Failure Inclusion Criteria At DC or during hospital stay patient has or had the following: CHF DIAGNOSIS No Discharge Core Measures Meds if any: Prescribed or Continued at Discharge Meds if any: NOT Prescribed or Continued at Discharge Cerebrovascular accident Inclusion Criteria At DC or during hospital stay patient has or had the following: CVA/TIA Diagnosis No Discharge Core Measures Meds if any: Prescribed or Continued at Discharge Meds if any: NOT Prescribed or Continued at Discharge Venous thromboembolism Inclusion Criteria VTE Diagnosis No VTE Type NONE VTE Confirmed by (Test) NONE Discharge Core Measures - Per Current guidelines, there needs to be overlap - treatment for the first 5 days of Warfarin therapy. - If discharged on Warfarin prior to 5 days of - overlap therapy, the patient will need to be - assessed for post discharge needs including - *Post discharge parental anticoagulation - *Warfarin and/or parental anticoagulation education - *Follow up date to check INR post discharge At least 5 days overlap therapy as Inpatient No Meds if any: Prescribed or Continued at Discharge Note: Overlap Therapy is Warfarin and Anticoagulant Meds if any: NOT Prescribed or Continued at Discharge
[2017-07-24 09:30] VITALS: BP 80/62
[2017-07-24 10:30] VITALS: BP 90/60
--- NOTE | 2017-07-24 13:31 | PN- Urology ---
Surgical Brief Attending Note Brief Attending Note: Patient admitted with influenza. 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 The tube is changed monthly in the office. It was due to be changed today. Today at bedside his suprapubic tube was changed. 18 fr abrams used Plan: 1. Office f/u in 1 month for next suprapubic tube change
[2017-07-24 15:25] VITALS: BP 98/60
[2017-07-24 20:53] VITALS: BP 112/64
[2017-07-25 07:01] VITALS: BP 118/68
--- NOTE | 2017-07-25 07:16 | PN- Housestaff ---
Ila Timmons 07/25/17 0716: Subjective Follow-up For: Acute Influenza A Infection Pyuria/Urinary Retention Chronic hyponatremia Tele-Events Since Last Visit: Not on monitor Subjective: Patient seen and examined at bedside. He states he is still coughing. He denies CP, SOB. Of note he remains afebrile. He was seen by Dr. Elizalde, and his suprapubic catheter was changed yesterday, with F/U in a month. Review of Systems Constitutional: Denies: chills, fever. EENTM: Denies: visual changes. Cardiovascular: Denies: chest pain, orthopena, palpitations. Respiratory: Reports: cough. Denies: short of breath, sputum production, wheezing. Gastrointestinal: Denies: abdominal pain, nausea, vomiting. Genitourinary: Reports: no symptoms. Neurological/Psychological: Denies: headache, numbness. Objective Last 24 Hrs of Vital Signs/I&O Vital Signs Date Time Temp Pulse Resp B/P B/P Pulse O2 O2 Flow FiO2 Mean Ox Delivery Rate 07/25 0701 98.1 63 18 118/68 96 Room Air 04/05 2053 98.4 79 18 112/64 94 Room Air 04/05 1600 Room Air 04/05 1525 97.7 64 20 98/60 96 04/05 1200 52 80/60 04/05 1159 52 80/60 04/05 1030 55 90/60 04/05 0930 52 80/62 04/05 0727 97.9 53 20 106/56 95 Room Air Intake & Output /06 0800 04/06 0000 04/05 1600 Intake Total 800 500 Output Total 1175 3900 3450 Balance -1175 -3100 -2950 Intake, Oral 800 500 Number 1 Bowel Movements Output, Urine 1175 3900 3450 Physical Exam General Appearance: Alert, Oriented X3, Cooperative, No Acute Distress Skin Temp/Moisture Exam: Warm/Dry HEENT: Atraumatic, PERRLA, EOMI, Mucous Membr. moist/pink Neck: Supple, No JVD Cardiovascular: Regular Rate, Normal S1, Normal S2, No Murmurs Lungs: mild bilateral ronchi b/l; sounds congested, no wheezing Abdomen: Normal Bowel Sounds, Soft, No Tenderness Neurological: Normal Speech Extremities: 1+ b/l LE edema Current Medications: Current Medications Sig/Tk Start time Last Medication Dose Route Stop Time Status Admin Acetaminophen 650 MG Q4P PRN 07/22 1530 AC 07/24 PO 0553 Allopurinol 100 MG DAILY 07/22 1428 AC 07/24 PO 0932 Aspirin 81 MG DAILY 07/23 1000 AC 07/24 PO 0932 Atenolol 50 MG DAILY 07/22 1429 AC 07/23 PO 1231 Atorvastatin Calcium 40 MG 1700 07/22 1700 AC 07/24 PO 1608 Benzonatate 100 MG TID 07/22 1612 AC 07/24 PO 2046 Collagenase 1 BRYCE DAILY 07/22 1430 AC 07/24 TOP 0933 Fenofibrate 145 MG DAILY 07/23 1000 AC 07/24 PO 0932 Guaifenesin/ 10 ML Q6P PRN 07/22 1615 AC 07/24 Dextromethorphan PO 0008 Heparin Sodium 5,000 UNIT Q8 07/22 1524 AC 07/25 (Porcine) SC 0542 Insulin Aspart 0 TIDAC 07/22 1700 AC SC Lisinopril 5 MG DAILY 07/23 1000 AC 07/23 PO 1052 Omeprazole 20 MG DAILY AC 07/22 1431 AC 07/25 PO 0542 Oseltamivir Phosphate 75 MG BID 07/22 1000 AC 07/24 PO 04 0959 2046 Oxybutynin Chloride 5 MG BID 07/22 1431 AC 07/24 PO 2046 Sodium Chloride 1,000 MG TID 07/22 1600 AC 07/24 PO 2046 Tamsulosin HCl 0.4 MG DAILY 07/22 1431 AC 07/23 PO 1231 Orders Fingersticks (last 24 hrs): 81, 117, 104, 85 Lines/Diet/Fluids Catheters/Tubes: abrams Abrams Still Needed? 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 Patient was admitted on general medicine so for the management of following problems Positive influenza A Patient has multiple comorbidities including age more than 65, and history of diabetes mellitus. He's found to have positive influenza A in emergency department. Patient was started on Tamiflu, currently day 4. We will adequately hydrate the patient and keeping him on droplet precautions. Chest x-ray also showed adjacent streaky left basilar atelectasis left lung. Patient does not have any signs of infection. We will hold off on any antibiotics for now. Did not have any high-grade fever overnight, no tachycardia, tachypnea, hypotension, leukocytosis or leukopenia therefore he does not meet the criteria for sepsis on admission. Decubitus ulcer, unstageable Patient has skin breakdown and unstageable decubitus ulcer at the gluteal region . Wound care was consulted. Patient will have regular dressing with collagenase and Xeroform. In the past patient's wound grew MRSA. [id number] diabetes mellitus Last hemoglobin A1c 5.4 in September 2016. Repeat hemoglobin A1c: 6 We will keep the patient on insulin sliding scale and check fingersticks. Chronic hyponatremia Patient has past medical history significant for hyponatremia. Serum osmolality low, low urine osmolality, and fractional excretion of sodium 1.3. Patient has euvolemic hypotonic hyponatremia. We'll continue the patient's sodium chloride tablets. Pyuria/urinary retention Patient has chronic suprapubic indwelling folly catheter that is changed monthly. No leukocytosis. We'll hold off on antibiotics for now urine culture growing gram negative rods, which can be colonization. Urology consult placed yesterday, and suprapubic tube was changed yesterday. Patient is to follow up with Dr. Elizalde in 1 month for next suprapubic tube change. Chronic medical conditions, GERD, hyperlipidemia, essential hypertension Continue with omeprazole, statin/fenofibrates and atenolol and enalapril Patient is full code Patient is on subcutaneous heparin for DVT prophylaxis Patient is on pain pathway Patient is on diabetic diet Problem List: 1. Influenza A 2. Hyponatremia Pain Ratin Pain Location: N/A Pain Goal: Remain pain free Pain Plan: TYELNOL Tomorrow's Labs & Rationales: cbc, Na - hyponatremia - chronic Discharge Plan Discharge Disposition: home Stable for Discharge? No Anticipated Discharge (Day): tomorrow If Discharged Today/In 24 Hrs: enter [facility] discharge ord, W-10/discharge paper done, DC summary done, CMR done Llye Torres MD 07/25/17 2211: Attending MD Review Statement Attending Statement Attending MD Statement: examined this patient, discuss w/resident/PA/TOOL FILER, agreed w/resident/PA/TOOL FILER, reviewed EMR data (avail), discussed with nursing, discussed with case mgmt, amended to note Attending Assessment/Plan: The patient was seen and discussed with house staff, nursing and case management. The patient is improving, however continues with cough and not ready to go home. Does not want STR. Will continue current therapy and plan discharge to home with services tomorrow. Completing course of Tamiflu.
[2017-07-25 13:58] VITALS: BP 96/59
[2017-07-25 22:47] VITALS: BP 112/60
--- NOTE | 2017-07-26 05:36 | PN- Housestaff ---
Subjective Follow-up For: Acute Influenza A Infection Pyuria/Urinary Retention Chronic hyponatremia Objective Last 24 Hrs of Vital Signs/I&O Vital Signs Date Time Temp Pulse Resp B/P B/P Pulse O2 O2 Flow FiO2 Mean Ox Delivery Rate 07/25 2247 98.0 63 18 112/60 95 Room Air 04/ 1358 97.5 71 16 96/59 97 Room Air 04/ 0847 98.1 63 18 118/68 04/06 0846 98.1 63 18 118/68 04/06 0846 98.1 63 18 118/68 04/06 0701 98.1 63 18 118/68 96 Room Air Intake & Output 07/26 0800 04/07 0000 04/ 1600 Intake Total 100 Output Total 2550 1400 Balance -2450 -1400 Intake, Oral 100 Number 4 Bowel Movements Output, Urine 2550 1400 Current Medications: Current Medications Sig/Tk Start time Last Medication Dose Route Stop Time Status Admin Acetaminophen 650 MG Q4P PRN 07/22 1530 AC 07/24 PO 0553 Allopurinol 100 MG DAILY 07/22 1428 AC 07/25 PO 0846 Aspirin 81 MG DAILY 07/23 1000 AC 07/25 PO 0846 Atenolol 50 MG DAILY 07/22 1429 AC 07/25 PO 0846 Atorvastatin Calcium 40 MG 1700 04/ 1700 AC 07/25 PO 1632 Benzocaine/Menthol 1 FLOR Q2P PRN 07/25 1000 AC 07/25 PO 1632 Benzonatate 100 MG TID 07/22 1612 AC 07/25 PO 2106 Collagenase 1 BRYCE DAILY 07/22 1430 AC 07/25 TOP 0852 Fenofibrate 145 MG DAILY 07/23 1000 AC 07/25 PO 0846 Guaifenesin/ 10 ML Q6P PRN / 1615 AC 04 Dextromethorphan PO 0008 Heparin Sodium 5,000 UNIT Q8 07/22 1524 AC 07/25 (Porcine) SC 2106 Insulin Aspart 0 TIDAC 07/22 1700 AC SC Lisinopril 5 MG DAILY 07/23 1000 AC 07/25 PO 0846 Omeprazole 20 MG DAILY AC 07/22 1431 AC 04 PO 0542 Oseltamivir Phosphate 75 MG BID 07/22 1000 AC 07/25 PO 04 0959 2106 Oxybutynin Chloride 5 MG BID 04/03 1431 AC 04/ PO 2106 Sodium Chloride 1,000 MG TID 07/22 1600 AC 07/25 PO 2106 Tamsulosin HCl 0.4 MG DAILY 07/22 1431 AC 07/25 PO 0847 Assessment/Plan Assessment: 77-year-old male with past medical history of hypertension, hyperlipidemia, diabetes mellitus, chronic back pain secondary to lumbar fusion multiple back surgeries (dependent on hoveround for movement), history of MRSA, 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 Patient was admitted on general medicine so for the management of following problems Positive influenza A Patient has multiple comorbidities including age more than 65, and history of diabetes mellitus. He's found to have positive influenza A in emergency department. Patient was started on Tamiflu, currently day 4. We will adequately hydrate the patient and keeping him on droplet precautions. Chest x-ray also showed adjacent streaky left basilar atelectasis left lung. Patient does not have any signs of infection. We will hold off on any antibiotics for now. Did not have any high-grade fever overnight, no tachycardia, tachypnea, hypotension, leukocytosis or leukopenia therefore he does not meet the criteria for sepsis on admission. Decubitus ulcer, unstageable Patient has skin breakdown and unstageable decubitus ulcer at the gluteal region . Wound care was consulted. Patient will have regular dressing with collagenase and Xeroform. In the past patient's wound grew MRSA. Yai-kvvhdwt-ofdsoxoeg diabetes mellitus Last hemoglobin A1c 5.4 in September 2016. Repeat hemoglobin A1c: 6 We will keep the patient on insulin sliding scale and check fingersticks. Chronic hyponatremia Patient has past medical history significant for hyponatremia. Serum osmolality low, low urine osmolality, and fractional excretion of sodium 1.3. Patient has euvolemic hypotonic hyponatremia. We'll continue the patient's sodium chloride tablets. Pyuria/urinary retention Patient has chronic suprapubic indwelling folly catheter that is changed monthly. No leukocytosis. We'll hold off on antibiotics for now urine culture growing gram negative rods, which can be colonization. Urology consult placed yesterday, and suprapubic tube was changed yesterday. Patient is to follow up with Dr. Elizalde in 1 month for next suprapubic tube change. Chronic medical conditions, GERD, hyperlipidemia, essential hypertension Continue with omeprazole, statin/fenofibrates and atenolol and enalapril Patient is full code Patient is on subcutaneous heparin for DVT prophylaxis Patient is on pain pathway Patient is on diabetic diet Problem List: 1. Hyponatremia 2. Influenza A Tomorrow's Labs & Rationales: n/a Consulting Request: Consulting Specialty: Urology Consulting Physician: Dr. Elizalde Reason for Consult: Giraldo catheter change
[2017-07-26 06:19] VITALS: BP 134/78
[2017-07-26 08:49] LABS: ABSOLUTE BASOPHIL COUNT 0 /CUMM (0.0-0.2); ABSOLUTE EOSINOPHIL COUNT 0.3 /CUMM (0.0-0.7); ABSOLUTE LYMPH COUNT 1.5 /CUMM (1.2-3.4); ABSOLUTE MONOCYTE COUNT 0.6 /CUMM (0.10-0.60); BASOPHIL % 0.2 % (0.0-2.0); EOSINOPHIL % 4.9 % (0-5); GRANULOCYTE % 63.3 % (42.2-75.2); HEMATOCRIT 33.7 % (42-52); MEAN CORPUSCULAR HGB 26.6 PG (27.0-31.0); MEAN CORPUSCULAR HGB CONC 33.3 G/DL (33.0-37.0); MEAN PLATELET VOLUME 7.7 FL (7.4-10.4); PLATELET COUNT 294 /CUMM (130-400); RBC DISTRIBUTION WIDTH 17.2 % (11.5-14.5); RED BLOOD CELL CT 4.22 /CUMM (4.70-6.10); WHITE BLOOD CELL COUNT 6.4 /CUMM (4.8-10.8)
[2017-07-26] MEDS ORDERED: TAMIFLU75 M1 PO ×2 (12:13→12:14)
--- NOTE | 2017-07-26 14:30 | PN- Att Addend ---
Attending Addendum Attending Brief Note Patient seen and examined. Plan of care discussed with the medical team and the patient. Available lab work and radiology test reports were reviewed. Patient continues to have cough for which is mostly dry. He denies any fever chills or any chest pains. Exam: General: Patient awake alert oriented without any distress CVS: S1 plus S2 without any murmur or gallops Chest: Few scattered crepitation without any wheeze. There is no respiratory distress. 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 he is awake alert and follows commands appropriately Extremities: No edema; no clubbing or cyanosis noted Note the patient was noted to have a new rash in groin and axilla area which is likely fungal Assessment Influenza Cough History diabetes History of hypertension Hyponatremia Plan Complete 5 days of Tamiflu Start nystatin powder to affected area skin rash Plan for discharge tomorrow Continue symptomatically treatment for coughing Recheck BEP tomorrow Current Medications Sig/Tk Start time Last Medication Dose Route Stop Time Status Admin Acetaminophen 650 MG Q4P PRN 07/22 1530 AC 07/24 PO 0553 Allopurinol 100 MG DAILY 07/22 1428 AC 07/26 PO 0923 Aspirin 81 MG DAILY 07/23 1000 AC 07/26 PO 0923 Atenolol 50 MG DAILY 07/22 1429 AC 07/26 PO 0923 Atorvastatin Calcium 40 MG 1700 04/ 1700 AC 07/25 PO 1632 Benzocaine/Menthol 1 FLOR Q2P PRN / 1000 AC 07/25 PO 1632 Benzonatate 100 MG TID 07/22 1612 AC 07/26 PO 0923 Collagenase 1 BRYCE DAILY 07/22 1430 AC 07/26 TOP 0924 Fenofibrate 145 MG DAILY 07/23 1000 AC 07/26 PO 0923 Guaifenesin/ 10 ML Q6P PRN / 1615 AC 07/24 Dextromethorphan PO 0008 Heparin Sodium 5,000 UNIT Q8 07/22 1524 AC 07/26 (Porcine) SC 1335 Insulin Aspart 0 TIDAC 07/22 1700 AC SC Lisinopril 5 MG DAILY 07/23 1000 AC 07/26 PO 0923 Nystatin 1 BRYCE TID 07/26 1257 AC TOP Omeprazole 20 MG DAILY AC 07/22 1431 AC 07/26 PO 0557 Oseltamivir Phosphate 75 MG ONCE ONE 07/27 1999 AC PO 07/26 2000 Oseltamivir Phosphate 75 MG ONCE ONE 07/26 1215 DC PO 07/26 1216 Oseltamivir Phosphate 75 MG BID 07/22 1000 DC 07/25 PO 07/26 0959 2106 Oxybutynin Chloride 5 MG BID 07/22 143 AC 07/26 PO 0924 Sodium Chloride 1,000 MG TID 07/22 1600 AC 07/26 PO 0923 Tamsulosin HCl 0.4 MG DAILY 07/22 143 AC 07/26 PO 0923 Laboratory Tests 07/26/17 0748: Anion Gap 11, Estimated GFR > 60, BUN/Creatinine Ratio 20.0, CBC w Diff NO MAN DIFF REQ, RBC 4.22 L, MCV 80.0, MCH 26.6 L, MCHC 33.3, RDW 17.2 H, MPV 7.7, Gran % 63.3, Lymphocytes % 22.8, Monocytes % 8.8, Eosinophils % 4.9, Basophils % 0.2, Absolute Granulocytes 4.0, Absolute Lymphocytes 1.5, Absolute Monocytes 0.6 , Absolute Eosinophils 0.3, Absolute Basophils 0 Vital Signs Date Time Temp Pulse Resp B/P B/P Pulse O2 O2 Flow FiO2 Mean Ox Delivery Rate 07/26 922 66 110/70 07/26 922 66 110/60 07/26 922 66 110/70 07/26 618 98.8 75 18 134/78 96 Room Air 07/25 2247 98.0 63 18 112/60 95 Room Air Intake & Output 07/26 1600 07/26 0800 07/26 0000 Intake Total 300 200 100 Output Total 1700 1500 2550 Balance -1400 -1300 -2450 Intake, Oral 300 200 100 Number 2 4 Bowel Movements Output, Urine 1700 1500 2550 Patient 163 lb Weight Weight Bed scale Measurement Method
[2017-07-26 15:27] VITALS: BP 118/60
[2017-07-26] MEDS ORDERED: NYSTATIN15 G1 TOP (18:35)
[2017-07-26 22:28] VITALS: BP 110/64
[2017-07-27 06:20] VITALS: BP 126/70
[2017-07-27 09:09] VITALS: BP 126/70
[2017-07-27] MEDS ORDERED: NYSTATIN15 G1 TOP (10:23)
--- NOTE | 2017-07-27 10:30 | PN- Housestaff ---
Subjective Follow-up For: Influenza Subjective: No overnight events. The patient feels well this morning is ready for discharge. Review of Systems Constitutional: Reports: no symptoms. EENTM: Reports: no symptoms. Cardiovascular: Reports: no symptoms. Respiratory: Reports: no symptoms. Gastrointestinal: Reports: no symptoms. Genitourinary: Reports: no symptoms. Musculoskeletal: Reports: no symptoms. Skin: Reports: no symptoms. Neurological/Psychological: Reports: no symptoms. Hematologic/Endocrine: Reports: no symptoms. Immunologic/Allergic: Reports: no symptoms. Objective Last 24 Hrs of Vital Signs/I&O Vital Signs Date Time Temp Pulse Resp B/P B/P Pulse O2 O2 Flow FiO2 Mean Ox Delivery Rate 07/27 908 65 126/70 07/27 0909 65 126/70 07/27 0909 65 120/70 07/27 0620 98.9 65 18 126/70 93 Room Air 07/26 2228 98.5 69 18 110/64 92 Room Air 07/26 1527 98.0 74 20 118/60 92 Intake & Output 07/27 1600 08 0800 07/27 0000 Intake Total 500 200 Output Total 1000 2800 Balance -500 -2600 Intake, Oral 500 200 Number 0 Bowel Movements Output, Urine 1000 2800 Patient 73.482 kg Weight Weight Bed scale Measurement Method Physical Exam General Appearance: Alert, Oriented X3, Cooperative, No Acute Distress Cardiovascular: Regular Rate Lungs: Clear to Auscultation Current Medications: Current Medications Sig/Tk Start time Last Medication Dose Route Stop Time Status Admin Acetaminophen 650 MG Q4P PRN 07/22 1530 AC 07/24 PO 0553 Allopurinol 100 MG DAILY 07/22 1428 AC 07/27 PO 0908 Aspirin 81 MG DAILY 07/23 1000 AC 07/27 PO 0910 Atenolol 50 MG DAILY 07/22 1429 AC 07/27 PO 0909 Atorvastatin Calcium 40 MG 1700 07/22 1700 AC 07/26 PO 1649 Benzocaine/Menthol 1 FLOR Q2P PRN 07/25 1000 AC 07/25 PO 1632 Benzonatate 100 MG TID 07/22 1612 AC 07/27 PO 0908 Collagenase 1 BRYCE DAILY 07/22 1430 AC 07/27 TOP 0911 Fenofibrate 145 MG DAILY 07/23 1000 AC 07/27 PO 0908 Guaifenesin/ 10 ML Q6P PRN 07/22 1615 AC 07/24 Dextromethorphan PO 0008 Heparin Sodium 5,000 UNIT Q8 07/22 1524 AC 07/27 (Porcine) SC 0601 Insulin Aspart 0 TIDAC 07/22 1700 AC SC Lisinopril 5 MG DAILY 07/23 1000 AC 07/27 PO 0909 Nystatin 1 BRYCE TID 07/26 1257 AC 07/27 TOP 0911 Omeprazole 20 MG DAILY AC 07/22 1431 AC 07/27 PO 0601 Oseltamivir Phosphate 75 MG ONCE ONE 07/26 2000 DC 07/26 PO 07/26 2000 2114 Oseltamivir Phosphate 75 MG ONCE ONE 07/26 1215 DC 07/26 PO 07/26 1216 1511 Oxybutynin Chloride 5 MG BID 07/22 1431 AC 07/27 PO 0909 Sodium Chloride 1,000 MG TID 07/22 1600 AC 07/27 PO 0909 Tamsulosin HCl 0.4 MG DAILY 07/22 1431 AC 07/27 PO 0909 Last 24 Hrs of Lab/Ignacio Results Last 24 Hrs of Labs/Mics: Laboratory Tests 07/27/17 0745: Anion Gap 12, Estimated GFR > 60, BUN/Creatinine Ratio 21.7 Assessment/Plan Assessment: 77-year-old male with past medical history of hypertension, hyperlipidemia, diabetes mellitus, chronic back pain secondary to lumbar fusion multiple back surgeries (dependent on hoveround for movement), history of MRSA, 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 Patient is stable for discharge today. Patient was admitted on general medicine so for the management of following problems Positive influenza A Patient has multiple comorbidities including age more than 65, and history of diabetes mellitus. He's found to have positive influenza A in emergency department. Patient was started on Tamiflu, now received full course. We will adequately hydrate the patient and keeping him on droplet precautions. Chest x- ray also showed adjacent streaky left basilar atelectasis left lung. Patient does not have any signs of infection. We will hold off on any antibiotics for now. Did not have any high-grade fever overnight, no tachycardia, tachypnea, hypotension, leukocytosis or leukopenia therefore he does not meet the criteria for sepsis on admission. Decubitus ulcer, unstageable Patient has skin breakdown and unstageable decubitus ulcer at the gluteal region . Wound care was consulted. Patient will have regular dressing with collagenase and Xeroform. In the past patient's wound grew MRSA. [id number]-[id number] diabetes mellitus Last hemoglobin A1c 5.4 in September 2016. Repeat hemoglobin A1c: 6 We will keep the patient on insulin sliding scale and check fingersticks. Chronic hyponatremia Patient has past medical history significant for hyponatremia. Serum osmolality low, low urine osmolality, and fractional excretion of sodium 1.3. Patient has euvolemic hypotonic hyponatremia. We'll continue the patient's sodium chloride tablets. Pyuria/urinary retention Patient has chronic suprapubic indwelling folly catheter that is changed monthly. No leukocytosis. We'll hold off on antibiotics for now urine culture growing gram negative rods, which can be colonization. Urology consult placed yesterday, and suprapubic tube was changed yesterday. Patient is to follow up with Dr. Elizalde in 1 month for next suprapubic tube change. Chronic medical conditions, GERD, hyperlipidemia, essential hypertension Continue with omeprazole, statin/fenofibrates and atenolol and enalapril Patient is full code Patient is on subcutaneous heparin for DVT prophylaxis Patient is on pain pathway Patient is on diabetic diet Problem List: 1. Influenza A Pain Ratin Pain Location: no Pain Goal: Remain pain free Pain Plan: see a/p Tomorrow's Labs & Rationales: no Consulting Request: Consulting Specialty: Urology Consulting Physician: Dr. Elizalde Reason for Consult: Giraldo catheter change
--- NOTE | 2017-07-27 12:45 | PN- Att Addend ---
Attending Addendum Attending Brief Note Patient seen and examined. Plan of care discussed with the medical team and the patient. Available lab work and radiology test reports were reviewed. Patient reports decreased cough today. He denies any fever chills or any chest pains. He is anxious to go home today. Exam: General: Patient awake alert oriented without any distress CVS: S1 plus S2 without any murmur or gallops Chest: Few scattered crepitation without any wheeze. There is no respiratory distress. 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 Current Medications Sig/Tk Start time Last Medication Dose Route Stop Time Status Admin Acetaminophen 650 MG Q4P PRN 07/22 1530 AC 04 PO 0553 Allopurinol 100 MG DAILY 07/22 1428 AC 07/27 PO 0908 Aspirin 81 MG DAILY 07/23 1000 AC 07/27 PO 0910 Atenolol 50 MG DAILY 07/22 1429 AC 07/27 PO 0909 Atorvastatin Calcium 40 MG 1700 04/ 1700 AC 07/26 PO 1649 Benzocaine/Menthol 1 FLOR Q2P PRN 07/25 1000 AC 07/25 PO 1632 Benzonatate 100 MG TID 07/22 1612 AC 07/27 PO 0908 Collagenase 1 BRYCE DAILY 07/22 1430 AC 07/27 TOP 0911 Fenofibrate 145 MG DAILY 07/23 1000 AC 07/27 PO 0908 Guaifenesin/ 10 ML Q6P PRN 07/22 1615 AC 04 Dextromethorphan PO 0008 Heparin Sodium 5,000 UNIT Q8 07/22 1524 AC 07/27 (Porcine) SC 0601 Insulin Aspart 0 TIDAC 07/22 1700 AC SC Lisinopril 5 MG DAILY 07/23 1000 AC 07/27 PO 0909 Nystatin 1 BRYCE TID 07/26 1257 AC 07/27 TOP 0911 Omeprazole 20 MG DAILY AC 07/22 1431 AC 07/27 PO 0601 Oseltamivir Phosphate 75 MG ONCE ONE 07/27 1999 DC 07/26 PO 07/26 Oxybutynin Chloride 5 MG BID 07/22 1431 AC 07/27 PO 0909 Sodium Chloride 1,000 MG TID 07/22 1600 AC 07/27 PO 0909 Tamsulosin HCl 0.4 MG DAILY 07/22 1431 AC 07/27 PO 0909 Laboratory Tests 07/27/17 0745: Anion Gap 12, Estimated GFR > 60, BUN/Creatinine Ratio 21.7 07/26/17 0748: Anion Gap 11, Estimated GFR > 60, BUN/Creatinine Ratio 20.0, CBC w Diff NO MAN DIFF REQ, RBC 4.22 L, MCV 80.0, MCH 26.6 L, MCHC 33.3, RDW 17.2 H, MPV 7.7, Gran % 63.3, Lymphocytes % 22.8, Monocytes % 8.8, Eosinophils % 4.9, Basophils % 0.2, Absolute Granulocytes 4.0, Absolute Lymphocytes 1.5, Absolute Monocytes 0.6 , Absolute Eosinophils 0.3, Absolute Basophils 0 Vital Signs Date Time Temp Pulse Resp B/P B/P Pulse O2 O2 Flow FiO2 Mean Ox Delivery Rate 07/27 908 65 126/70 07/27 908 65 126/70 07/27 908 65 120/70 07/27 0620 98.9 65 18 126/70 93 Room Air 07/26 2228 98.5 69 18 110/64 92 Room Air 07/26 1527 98.0 74 20 118/60 92 Intake & Output 07/27 1600 07/27 0800 07/27 0000 Intake Total 400 500 200 Output Total 1000 2800 Balance 400 -500 -2600 Intake, Oral 400 500 200 Number 0 Bowel Movements Output, Urine 1000 2800 Patient 162 lb Weight Weight Bed scale Measurement Method
== END 2017-07-27 13:25 | disposition home health service (06) | DRG 194 ==
LOC: ERH 08:51 → ERHI 11:27 → 2NA 11:27 → ENRESERV 12:28 → ENTRNSPT 13:06 → EDTRNSPTSTS 13:08 → EDTRNSPT 13:08 → 2NA 13:14 → CMPTRNSPT 13:30 → ENPENDDIS 07-27 10:23 → 2NA 07-27 13:25
PROVIDERS: Emergency Medicine; Internal Medicine Infectious Disease
DX: J10.1 Influenza due to other identified influenza virus with other respiratory manifestations (principal); N39.0 Urinary tract infection, site not specified; L89.310 Pressure ulcer of right buttock, unstageable; L89.150 Pressure ulcer of sacral region, unstageable; E11.8 Type 2 diabetes mellitus with unspecified complications; L89.320 Pressure ulcer of left buttock, unstageable; E87.1 Hypo-osmolality and hyponatremia; T83.518A Infection and inflammatory reaction due to other urinary catheter, initial encounter; R13.10 Dysphagia, unspecified; Z93.59 Other cystostomy status; I10 Essential (primary) hypertension; Z79.84 Long term (current) use of oral hypoglycemic drugs; K21.9 Gastro-esophageal reflux disease without esophagitis; E78.5 Hyperlipidemia, unspecified; M81.0 Age-related osteoporosis without current pathological fracture; Z86.14 Personal history of Methicillin resistant Staphylococcus aureus infection; M54.5 Low back pain; Z98.1 Arthrodesis status; Z89.421 Acquired absence of other right toe(s); Z89.422 Acquired absence of other left toe(s); Z79.82 Long term (current) use of aspirin; Z79.891 Long term (current) use of opiate analgesic; K59.00 Constipation, unspecified; M10.9 Gout, unspecified
CPT/HCPCS: 2NAP; 84133; 84300; 36415; 36592; 71045; 81001; 82436; 82570; 87040; 87070; 87086; 87804; 87804-59; 96361; 96365; 96375; J0131; J0696; J1644; J3490

== ENCOUNTER 2017-11-21 17:35 | Observation (INO) | payer OTHER, MEDICARE ==
[~2017-11-21] VITALS: Ht 185.4 cm; Wt 68.0 kg
[~2017-11-21 17:35] MED LIST changes: +ALLOPURINOL100 M1 PO; +ASPIRIN81 M4 PO; +ATENOLOL50 M1 PO; +ATORVASTATIN CA40 M1 PO; +ENALAPRIL MALEAT5 M1 PO; +FENOFIBRATE134 M1 PO; +HYDROCHLOROTH12.5 M2 PO; +JANUMET 50-5001 EACH PO; +NYSTATIN15 G1 TOP; +OMEPRAZOLE20 M2 PO; +OXYBUTYNIN CHLOR5 M2 PO; +TAMIFLU75 M1 PO; +TAMSULOSIN HCL0.4 M1 PO; +VESICARE5 M1 PO
[2017-11-21 19:10] LABS: ABSOLUTE BASOPHIL COUNT 0 /CUMM (0.0-0.2); ABSOLUTE EOSINOPHIL COUNT 0.4 /CUMM (0.0-0.7); ABSOLUTE GRANULOCYTE CT 4.5 /CUMM (1.4-6.5); ABSOLUTE LYMPH COUNT 2.3 /CUMM (1.2-3.4); ABSOLUTE MONOCYTE COUNT 0.9 /CUMM (0.10-0.60); BASOPHIL % 0.6 % (0.0-2.0); EOSINOPHIL % 4.4 % (0-5); GRANULOCYTE % 55.8 % (42.2-75.2); HEMATOCRIT 38.2 % (42-52); MEAN CORPUSCULAR HGB CONC 32.3 G/DL (33.0-37.0); MEAN CORPUSCULAR VOLUME 80.5 FL (80.0-94.0); MEAN PLATELET VOLUME 7.6 FL (7.4-10.4); PLATELET COUNT 298 /CUMM (130-400); RBC DISTRIBUTION WIDTH 18.5 % (11.5-14.5); RED BLOOD CELL CT 4.74 /CUMM (4.70-6.10); WHITE BLOOD CELL COUNT 8.1 /CUMM (4.8-10.8)
--- NOTE | 2017-11-21 20:07 | CT SCAN REPORT ---
EXAMINATION: CT ABDOMEN AND PELVIS WITH CONTRAST CLINICAL INFORMATION: Colitis. Diverticulitis. Diarrhea. Lower abdomen pain COMPARISON: Portions of a previous study October 1927 TECHNIQUE: Multidetector volumetric imaging was performed of the abdomen and pelvis following IV administration of 95 mL of Optiray 320 intravenous contrast. Sagittal and coronal reformatted images were obtained on the technologist's workstation. DLP: 561 mGy-cm FINDINGS: LUNG BASES: No suspicious abnormality in the visualized right lung base. There is volume loss in hyperenhancement in the left lung base likely atelectasis. There is coronary calcification. LIVER, GALLBLADDER, AND BILIARY TREE: There is no suspicious focal liver lesion. The gallbladder is not well demonstrated and is likely surgically absent. PANCREAS: No suspicious abnormality SPLEEN: Normal ADRENAL GLANDS: Normal KIDNEYS AND URETERS: There are small cysts in the uppermost left kidney. No significant dilation of the intrarenal collecting system. Tiny cyst in the right kidney suspected. The nephrograms are homogeneous and symmetric. BLADDER: Suprapubic balloontipped catheter decompresses the bladder. The bladder is not well evaluated. GASTROINTESTINAL TRACT: There is marked abnormal thickening of the rectosigmoid. There is serosal irregularity. There are surrounding fat stranding changes greatest in the presacral space. In comparison to the previous study this is slightly improved. There is no drainable abscess. There is no definite pneumatosis or pneumoperitoneum. The distal colon is redundant. There is a large amount of retained fecal residue. The appendix is normal. There is no small bowel dilation. There is no definite abnormality of the stomach. ABDOMINAL WALL: No significant hernia is appreciated. LYMPH NODES: There are no enlarged abdominal or pelvic lymph nodes. There is no significant free intraperitoneal fluid. VASCULAR: There is atherosclerosis. The portal vein enhances. There are accessory renal arteries bilaterally. There may be a significant narrowing of the proximal right SFA. PELVIC VISCERA: No suspicious abnormality OSSEOUS STRUCTURES: Artifact related to posterior surgical decompression and instrumentation in the lumbar spine. Chronic deformity iliac wings. The relationship of the lower left screw to the neural foramen is difficult to determine. IMPRESSION: Marked wall thickening and surrounding stranding in the rectosigmoid. This may represent stercoral colitis. I suspect mild interval improvement No pneumoperitoneum or evidence of high-grade obstruction
--- NOTE | 2017-11-21 20:22 | ED GI/GU/ABDOMINAL COMPLAINT ---
See Addendum History of Present Illness General Chief Complaint: Nausea, Vomiting, Diarrhea Stated Complaint: DIARRHEA Source: patient Exam Limitations: no limitations Vital Signs & Intake/Output Vital Signs & Intake/Output Vital Signs Date Time Temp Pulse Resp B/P B/P Pulse O2 O2 Flow FiO2 Mean Ox Delivery Rate 11/23 0616 98.5 49 18 140/70 97 Room Air 11/23 0614 97 Room Air 11/22 2311 50 18 139/74 97 Room Air 11/22 1840 98.1 64 18 127/60 98 Room Air 11/22 1534 98 Room Air 11/22 1512 97.9 62 18 138/64 98 Room Air 11/22 1135 Room Air 11/22 0957 98.0 57 20 140/70 11/22 0957 98.0 57 20 140/70 11/22 0955 98.0 57 20 140/70 98 Room Air ED Intake and Output 11/23 0000 11/22 1200 Intake Total Output Total 800 1400 Balance -800 -1400 Output, Urine 800 1400 Triage Note: PT BIBA FROM HOME FOR DIARRHEA FOR ABOUT "3WKS". PT STATES HE ONLY HAD ONE BM TODAY. Triage Nurses Notes Reviewed? yes Onset: Abrupt Duration: week(s): (3), constant, continues in ED, getting worse Timing: single episode today Quality/Severity: cramping Severity Numbers: 5 Location: left lower quadrant Radiation: no radiation Activities at Onset: none Prior Abdominal Problems: none Past Sexual History: Unobtainable at this time No Modifying Factors: none HPI: 77-year-old male history of hypertension hyperlipidemia diabetes chronic back pain presents for evaluation of diarrhea and bedsores. Patient states that S3 weeks he has had diarrhea. The diarrhea is watery without blood. He was seen here when symptoms started had a CAT scan that showed colitis he was ultimately discharged. Patient reports the diarrhea has persisted. He reports that he lives by himself and does not ambulate due to his back pain. He spends most of his time in bed or in a wheelchair. He is visiting nurse from 8-5 daily. He reports that due to the increased diarrhea and his diapers she has developed bedsores. He has a specialized bed that is supposed to prevent these bedsores but he recently broke causing his bedsores to get worse and more painful. He reports some associated left lower quadrant abdominal pain that is mild 5-10 he is eating and drinking normally no recent antibiotics recent surgery recent travel or sick contacts. No chest pain shortness of breath or any other associated symptoms. (Dre Desir) Allergies Coded Allergies: lactose (UNKNOWN 11/06/17) (Kathy STORY,Derek Mccurdy) Reconcile Medications Allopurinol 100 MG TABLET 1 TAB PO DAILY GOUT (Reported) Aspirin (Aspirin*) 81 MG TAB.CHEW 1 TAB PO DAILY Heart (Reported) Atenolol 50 MG TABLET 1 TAB PO DAILY BP (Reported) Atorvastatin Calcium 40 MG TABLET 1 TAB PO DAILY Cholesterol (Reported) Enalapril Maleate 5 MG TABLET 1 TAB PO DAILY BP (Reported) Fenofibrate,Micronized (Fenofibrate) 134 MG CAPSULE 1 CAP PO DAILY CHOLESTEROL (Reported) Hydrochlorothiazide 12.5 MG TABLET 1 TAB PO DAILY WATER RETENTION (Reported) Oxybutynin Chloride 5 MG TABLET 1 TAB PO BID BLADDER (Reported) Sodium Bicarbonate 650 MG TABLET 1 TAB PO TID UNK (Reported) Sodium Chloride 1 GRAM TABLET 1 TAB PO TID UNK (Reported) Triamcinolone Acetonide (Triderm) 0.1 % CREAM..G. 1 BRYCE TOP BID AA (Reported) (Naomi STORY,Osmel) Past History Travel History Traveled to [place] past 21 day No Medical History Any Pertinent Medical History? 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 No (Dre Desir) Review of Systems Review of Systems Constitutional: Reports: no symptoms. EENTM: Reports: no symptoms. Respiratory: Reports: no symptoms. Cardiovascular: Reports: no symptoms. GI: Reports: see HPI, abdominal pain, diarrhea. Genitourinary: Reports: no symptoms. Musculoskeletal: Reports: no symptoms. Skin: Reports: see HPI, lesions. Neurological/Psychological: Reports: no symptoms. Hematologic/Endocrine: Reports: no symptoms. Immunologic/Allergic: Reports: no symptoms. All Other Systems: Reviewed and Negative (Dre Desir) Physical Exam Physical Exam General Appearance: well developed/nourished, no apparent distress, alert, awake Head: atraumatic, normal appearance Eyes: Bilateral: normal appearance, PERRL, EOMI. Ears, Nose, Throat, Mouth: hearing grossly normal, moist mucous membrane Neck: normal inspection, supple, full range of motion Respiratory: normal breath sounds, chest non-tender, no respiratory distress, lungs clear Cardiovascular: regular rate/rhythm, normal peripheral pulses Peripheral Pulses: 2+ radial (R), 2+ radial (L) Gastrointestinal: normal bowel sounds, soft, no organomegaly, tenderness (llq) Rectal: normal rectal tone, heme negative stool, no palpable fecal impaction, there are 6 ulcerated lesions located in the sacral area each being between 1 and 2 cm in diameter. There is some mild surrounding erythema no purulent discharge no focal fluctuant areas no lymph streaking Back: normal inspection, normal range of motion, no vertebral tenderness Extremities: normal range of motion Neurologic/Psych: no motor/sensory deficits, awake, alert, oriented x 3 Skin: intact, normal color, warm/dry Core Measures ACS in differential dx? No Sepsis Present: No Sepsis Focused Exam Completed? No (Dre Desir) Progress Differential Diagnosis: bowel obstruction, colon cancer, diverticulitis, ischemic bowel, inflamm bowel dis, SBO Plan of Care: Orders Procedure Date/time Status BASIC METABOLIC PANEL 11/22 2016 Complete Discharge Patient 11/22 1412 Active Current Medications Sig/Tk Start time Last Medication Dose Stop Time Status Admin Atorvastatin Calcium 40 MG 1700 11/22 1700 AC 11/22 (Lipitor) 1730 Allopurinol 100 MG DAILY 11/22 09 AC 11/22 (Zyloprim) 0957 Aspirin 81 MG DAILY 11/22 09 AC 11/22 (Aspirin) 0957 Atenolol 50 MG DAILY 11/22 09 AC 11/22 (Tenormin) 0957 Fenofibrate 145 MG DAILY 11/22 899 AC 11/22 (Tricor) 0957 Hydrochlorothiazide 12.5 MG DAILY 11/22 0900 AC 11/22 (Hydrodiuril) 0957 Lisinopril 5 MG DAILY 11/22 0900 AC 11/22 (Prinivil) 0957 Sodium Chloride 1,000 ML Q6H 11/21 2145 AC 11/23 (Normal Saline 0.9%) 0530 Laboratory Tests 11/22/17 2030: Anion Gap 8, Estimated GFR > 60, BUN/Creatinine Ratio 20.0, Glucose 112 H, Calcium 8.6 Patient is here for evaluation of ongoing diarrhea abdominal pain and now bedsores. Patient lives at home by himself spent most of his time in bed or in a wheelchair. He wears diapers and has an indwelling catheter. He developed bedsores likely due to the persistent diarrhea. It was also determined that his nurse sent him in because his bed to the [facility] prevent bedsores recently broken is no longer functioning. There is is concerned that the bedsores will get infected due to the constant contamination with stool. Labs EKG CT scan ordered. Stool cultures ordered. CT scan shows evidence of colitis that is somewhat improved. Radiologist feels the colitis could be related to an impacted stool ball. Enema ordered. Blood work shows hyponatremia there is not significant change from previous. IV fluids ordered. Patient will be made ED observation IN the emergency department overnight pending case management. Case management will attempt to get his bed situation fixed. Patient's medications ordered, maintenance fluids ordered, a repeat basic metabolic panel was ordered. Case discussed with Dr. Chavez he agrees. Diagnostic Imaging: Viewed by Me: CT Scan. Discussed w/RAD: CT Scan. Radiology Impression: PATIENT: JERROD PEÑALOZA PRESENT AGE : 77 PATIENT ACCOUNT NO: [id number] : 42 LOCATION: [facility] ORDERING PHYSICIAN: Dre SIMPSON SERVICE DATE: 11/21/17 EXAM TYPE: CAT - CT ABD & PELVIS W IV CONTRAST EXAMINATION: CT ABDOMEN AND PELVIS WITH CONTRAST CLINICAL INFORMATION: Colitis. Diverticulitis. Diarrhea. Lower abdomen pain COMPARISON: Portions of a previous study October 1927 TECHNIQUE: Multidetector volumetric imaging was performed of the abdomen and pelvis following IV administration of 95 mL of Optiray 320 intravenous contrast. Sagittal and coronal reformatted images were obtained on the technologist's workstation. DLP: 561 mGy-cm FINDINGS : LUNG BASES: No suspicious abnormality in the visualized right lung base. There is volume loss in hyperenhancement in the left lung base likely atelectasis. There is coronary calcification. LIVER, GALLBLADDER, AND BILIARY TREE: There is no suspicious focal liver lesion. The gallbladder is not well demonstrated and is likely surgically absent. PANCREAS: No suspicious abnormality SPLEEN: Normal ADRENAL GLANDS: Normal KIDNEYS AND URETERS: There are small cysts in the uppermost left kidney. No significant dilation of the intrarenal collecting system. Tiny cyst in the right kidney suspected. The nephrograms are homogeneous and symmetric. BLADDER: Suprapubic balloontipped catheter decompresses the bladder. The bladder is not well evaluated. GASTROINTESTINAL TRACT: There is marked abnormal thickening of the rectosigmoid. There is serosal irregularity. There are surrounding fat stranding changes greatest in the presacral space. In comparison to the previous study this is slightly improved. There is no drainable abscess. There is no definite pneumatosis or pneumoperitoneum. The distal colon is redundant. There is a large amount of retained fecal residue. The appendix is normal. There is no small bowel dilation. There is no definite abnormality of the stomach. ABDOMINAL WALL: No significant hernia is appreciated. LYMPH NODES: There are no enlarged abdominal or pelvic lymph nodes. There is no significant free intraperitoneal fluid. VASCULAR: There is atherosclerosis. The portal vein enhances. There are accessory renal arteries bilaterally. There may be a significant narrowing of the proximal right SFA. PELVIC VISCERA: No suspicious abnormality OSSEOUS STRUCTURES: Artifact related to posterior surgical decompression and instrumentation in the lumbar spine. Chronic deformity iliac wings. The relationship of the lower left screw to the neural foramen is difficult to determine. IMPRESSION: Marked wall thickening and surrounding stranding in the rectosigmoid. This may represent stercoral colitis. I suspect mild interval improvement No pneumoperitoneum or evidence of high- grade obstruction DICTATED BY: Manohar Morejon MD DATE/TIME DICTATED:11/21/171952 ZINC PLATE CUTTER:FRANKLIN DATE/TIME TRANSCRIBED:11/21/171952 CONFIDENTIAL, DO NOT COPY WITHOUT APPROPRIATE AUTHORIZATION. <Electronically signed in Other Vendor System> SIGNED BY: Manohar Morejon MD 11/21/172006 Initial ED EKG: nonspecific ST T wave chg, sinus marialuisa rate 53 (Karri SIMPSON,Dre) Comments: 11/22/2017 7:02:50 AM patient signed out to Dr. Mclean at shift manager exchange. 11/23/2017 7:55:55 AM patient signed out to me by Dr. Salgado at shift manager exchange. Awaiting repair of patient's home hospital bed prior to discharge. (Derek Chavez MD) Hand-Off Endorsed To: Derek Chavez MD Endorsed Time: 0700 Pending: other (case mgmt) (Naomi STORY,Osmel) Departure Departure Disposition: STILL A PATIENT Condition: Stable Clinical Impression Primary Impression: Colitis Referrals: Eloina Duvall MD (PCP/Family) Jennifer STORY,Jori Stauffer Additional Instructions: Follow-up with gastroenterology. Monitor symptoms return with any concerns. Departure Forms: Customer Survey General Discharge Information (Dre Desir) PA/SENIOR SITE MANAGER Co-Sign Statement Statement: ED Attending supervision documentation- [x] I saw and evaluated the patient. I have also reviewed all the pertinent lab results and diagnostic results. I agree with the findings and the plan of care as documented in the PA's/SENIOR SITE MANAGER's documentation. [] I have reviewed the ED Record and agree with the PA's/SENIOR SITE MANAGER's documentation. [] Additions or exceptions (if any) to the PAs/SENIOR SITE MANAGER's note and plan are summarized below: [] (Kathy STORY,Derek Mccurdy) Departure Comments 11/22/17 10 AM The patient was signed out to me by Dr. Chavez. He is pending assistance by case management to facilitate a new bed. Examination of the perirectal area reveals minimal irritation. (Derek Mclean DO) ED Attending Observation Initial Observation Note: I have seen and personally examined JERROD PEÑAOLZA on 11/21/17 at 2310. I agree with the current emergency department documentation. The disposition (admission or discharge) is uncertain at this time, he needs a period of observation for the following reason(s): Patient has profuse diarrhea with this low sodium level. His ongoing GI losses place him at risk of worsening hyponatremia and subsequent tremors seizures and altered mental status. Patient will have gentle IV fluids overnight to help replete his sodium level with a repeat sodium level in the morning. The patient will also be reassessed for his ability to ambulate and his capability IN returning home. The ED Nurse caring for this patient has been personally informed as to what the patient is being observed for. (Derek Chavez MD) (Derek Chavez MD) Condition: Stable Clinical Impression Primary Impression: Colitis Referrals: Eloina Duvall MD (PCP/Family) Jennifer STORY,Jori Stauffer Additional Instructions: Follow-up with gastroenterology. Monitor symptoms return with any concerns. Departure Forms: Customer Survey General Discharge Information (Dre Desir) PA/SENIOR SITE MANAGER Co-Sign Statement Statement: ED Attending supervision documentation- [x] I saw and evaluated the patient. I have also reviewed all the pertinent lab results and diagnostic results. I agree with the findings and the plan of care as documented in the PA's/SENIOR SITE MANAGER's documentation. [] I have reviewed the ED Record and agree with the PA's/SENIOR SITE MANAGER's documentation. [] Additions or exceptions (if any) to the PAs/SENIOR SITE MANAGER's note and plan are summarized below: [] (Kathy STORY,Derek Mccurdy) Departure Comments 11/22/17 10 AM The patient was signed out to me by Dr. Chavez. He is pending assistance by case management to facilitate a new bed. Examination of the perirectal area reveals minimal irritation. (Derek Mclean DO) ED Attending Observation Initial Observation Note: I have seen and personally examined JERROD PEÑALOZA on 11/21/17 at 2310. I agree with the current emergency department documentation. The disposition (admission or discharge) is uncertain at this time, he needs a period of observation for the following reason(s): Patient has profuse diarrhea with this low sodium level. His ongoing GI losses place him at risk of worsening hyponatremia and subsequent tremors seizures and altered mental status. Patient will have gentle IV fluids overnight to help replete his sodium level with a repeat sodium level in the morning. The patient will also be reassessed for his ability to ambulate and his capability IN returning home. The ED Nurse caring for this patient has been personally informed as to what the patient is being observed for. (Derek Chavez MD)
[2017-11-22] MEDS ORDERED: SODIUM CHLORIDE1 G2 PO (12:32)
[2017-11-22] MEDS ORDERED: SODIUM BICARBO650 M1 PO (12:32)
[2017-11-22] MEDS ORDERED: ASPIRIN EC81 M1 PO (12:32)
[2017-11-22] MEDS ORDERED: OXYBUTYNIN CHLOR5 M2 PO (12:33)
[2017-11-22] MEDS ORDERED: TRIDERM28.4 GM TOP (12:33)
[2017-11-24 17:55] VITALS: BP 114/55
== END 2017-11-24 17:51 ==
LOC: ERH 17:35 → ERHI 23:12
PROVIDERS: Physician Assistant Medical
DX: J09.X2 Influenza due to identified novel influenza A virus with other respiratory manifestations (principal); R53.1 Weakness; I10 Essential (primary) hypertension; E78.5 Hyperlipidemia, unspecified; E11.9 Type 2 diabetes mellitus without complications; M54.9 Dorsalgia, unspecified; M10.9 Gout, unspecified; N40.0 Benign prostatic hyperplasia without lower urinary tract symptoms; Z86.14 Personal history of Methicillin resistant Staphylococcus aureus infection; Z79.82 Long term (current) use of aspirin; K21.9 Gastro-esophageal reflux disease without esophagitis; K59.00 Constipation, unspecified; L89.300 Pressure ulcer of unspecified buttock, unstageable; E87.1 Hypo-osmolality and hyponatremia; R82.71 Bacteriuria; R33.9 Retention of urine, unspecified; M81.0 Age-related osteoporosis without current pathological fracture
CPT/HCPCS: 6090; 84133; 84300; 74177; 81001; 82570; 87015; 87045; 87086; 87328; 87329; 87899; 87899-59; 93005; 93010; 96374; G0378; J0131; J3490

== ENCOUNTER 2017-12-01 18:24 | Emergency (ER) | payer OTHER, MEDICARE ==
[~2017-12-01 18:24] MED LIST changes: +ASPIRIN EC81 M1 PO; +SODIUM BICARBO650 M1 PO; +SODIUM CHLORIDE1 G2 PO; +TRIDERM28.4 GM TOP
--- NOTE | 2017-12-01 18:36 | ED GI/GU/ABDOMINAL COMPLAINT ---
See Addendum History of Present Illness General Chief Complaint: Abdominal Pain/Flank Pain Stated Complaint: CONSTIPATED, LLQ PAIN Source: patient Exam Limitations: no limitations Vital Signs & Intake/Output Vital Signs & Intake/Output Vital Signs Date Time Temp Pulse Resp B/P B/P Pulse O2 O2 Flow FiO2 Mean Ox Delivery Rate 12/02 0553 98.2 53 18 127/55 97 Room Air 12/02 0053 98.0 56 18 105/53 95 Room Air 12/01 2322 98.5 58 17 133/69 97 Room Air 12/01 1827 98.5 55 17 131/74 97 Room Air Allergies Coded Allergies: lactose (UNKNOWN 11/06/17) Reconcile Medications Allopurinol 100 MG TABLET 1 TAB PO DAILY GOUT (Reported) Aspirin (Aspirin*) 81 MG TAB.CHEW 1 TAB PO DAILY Heart (Reported) Atenolol 50 MG TABLET 1 TAB PO DAILY BP (Reported) Atorvastatin Calcium 40 MG TABLET 1 TAB PO DAILY Cholesterol (Reported) Docusate Sodium (Colace) 100 MG CAPSULE 1 CAP PO BID constipation Enalapril Maleate 5 MG TABLET 1 TAB PO DAILY BP (Reported) Fenofibrate,Micronized (Fenofibrate) 134 MG CAPSULE 1 CAP PO DAILY CHOLESTEROL (Reported) Hydrochlorothiazide 12.5 MG TABLET 1 TAB PO DAILY WATER RETENTION (Reported) Oxybutynin Chloride 5 MG TABLET 1 TAB PO BID BLADDER (Reported) Polyethylene Glycol 3350 (Miralax) 17 GRAM/DOSE POWDER 17 GM PO BID constipation mix with water, juice, soda, coffee or tea Sodium Bicarbonate 650 MG TABLET 1 TAB PO TID UNK (Reported) Sodium Chloride 1 GRAM TABLET 1 TAB PO TID UNK (Reported) Triamcinolone Acetonide (Triderm) 0.1 % CREAM..G. 1 BRYCE TOP BID AA (Reported) Triage Note: PT RETURNS TO ED WITH RECURRING CONSTIPATION. SEEN FOR SAME ON FRIDAY AND GIVEN ENEMA WITH RELIEF. STATES HASNT BEEN TAKING STOOL SOFTENERS SINCE THEN. PT REPORTED TO VISITNG NURSE TODAY NO BM ADN LLQ DISCOMFORT. DENIES N/V. HAS CHRONIC SUPRAPUBIC TUBE. HAD BLOOD WORK AND ABD CT SCAN ON FRIDAY. Triage Nurses Notes Reviewed? yes Onset: Abrupt Duration: week(s): Timing: recent history Location: left lower quadrant HPI: 77yo male with PMH of DM, HTN presenting [facility] and constipation. Pt has had dull LLQ rated at 6/10 for over the past week. Pt was seen in ED 1 week ago for same complaints. Enema was administered, bowel movement was accomplished and pt had relief. Today, pt was prompted to come in by son for follow up because pt has not had a bowel movement since the enema treatment. He has had "liquid coming out", but no stool. Pt endorses good appetite. Pt denies any hematochezia or melena. Pt denies any other pain, fevers, chills, shortness of breath, nausea, vomiting. (Mani Hernandez) Past History Travel History Traveled to [place] past 21 day No Medical History Any Pertinent Medical History? 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 No (Mani Hernandez) Review of Systems Review of Systems Constitutional: Reports: no symptoms. EENTM: Reports: no symptoms. Respiratory: Reports: no symptoms. Cardiovascular: Reports: no symptoms. GI: Reports: see HPI. Genitourinary: Reports: no symptoms. Musculoskeletal: Reports: no symptoms. Skin: Reports: no symptoms. Neurological/Psychological: Reports: no symptoms. Hematologic/Endocrine: Reports: no symptoms. Immunologic/Allergic: Reports: no symptoms. All Other Systems: Reviewed and Negative (Mani Hernandez) Physical Exam Physical Exam General Appearance: well developed/nourished, no apparent distress, alert, awake Head: atraumatic, normal appearance Eyes: Bilateral: normal appearance, PERRL, EOMI. Ears, Nose, Throat, Mouth: hearing grossly normal Neck: normal inspection, supple, full range of motion, normal alignment Respiratory: normal breath sounds, chest non-tender, no respiratory distress, lungs clear Cardiovascular: regular rate/rhythm Gastrointestinal: normal bowel sounds, soft, hypoactive bowel sounds in the LLQ mild tenderness to palpation of LLQ Back: normal inspection, normal range of motion Extremities: normal range of motion Neurologic/Psych: no motor/sensory deficits, awake, alert, oriented x 3, normal mood/affect Skin: intact, normal color, warm/dry Core Measures ACS in differential dx? No Sepsis Present: No Sepsis Focused Exam Completed? No (Guillaume SIMPSON,Mani) Progress Differential Diagnosis: bowel obstruction, SBO, constipation, colitis, diverticulitis, Plan of Care: Orders Procedure Date/time Status CASE MANAGEMENT CONSULT 12/02 2235 Active Enema 12/02 1835 Active CULTURE,URINE 12/02 1835 Active URINALYSIS 12/02 1835 Complete COMPREHENSIVE METABOLIC PANEL 12/01 1834 Complete CBC WITHOUT DIFFERENTIAL 12/01 1834 Complete Laboratory Tests 12/01/17 1858: Anion Gap 8, Estimated GFR > 60, BUN/Creatinine Ratio 24.0, Glucose 114 H, Calcium 9.5, Total Bilirubin 0.4, AST 20, ALT 26, Alkaline Phosphatase 51, Total Protein 6.6, Albumin 3.7, Globulin 2.9, Albumin/Globulin Ratio 1.3, CBC w Diff NO MAN DIFF REQ, RBC 4.45 L, MCV 80.4, MCH 26.9 L, MCHC 33.4, RDW 18.3 H, MPV 7.5, Gran % 49.6, Lymphocytes % 30.6, Monocytes % 13.8 H, Eosinophils % 5.2 H, Basophils % 0.8, Absolute Granulocytes 3.2, Absolute Lymphocytes 2.0, Absolute Monocytes 0.9 H, Absolute Eosinophils 0.3, Absolute Basophils 0.1, Urinalysis MOD H, Urine Color YEL, Urine Clarity CLDY H, Urine pH 7.5, Ur Specific [place] 1.010, Urine Protein NEG, Urine Ketones NEG, Urine Nitrite POS H, Urine Bilirubin NEG, Urine Urobilinogen 0.2, Ur Leukocyte Esterase LARGE H, Ur Microscopic SEDIMENT EXAMINED, Urine RBC 3-5, Urine WBC 10-15 H, Ur Epithelial Cells RARE, Urine Bacteria MOD H, Granular Casts RARE H, Urine Hemoglobin TRACE-INTACT H, Urine Glucose NEG Microbiology 12/01 1857 URINE ROUT: Urine Culture - RECD Diagnostic Imaging: Viewed by Me: Radiology Read. Discussed w/RAD: Radiology Read. Radiology Impression: PATIENT: JERROD PEÑALOZA PRESENT AGE : 77 PATIENT ACCOUNT NO: [id number] : [id number] LOCATION: [facility] ORDERING PHYSICIAN: Mani SIMPSON SERVICE DATE: 12/01/17 EXAM TYPE: RAD - [id number] VIEWS EXAMINATION: XR ABDOMEN MULTIPLE VIEWS CLINICAL INDICATION: Constipation COMPARISON: CT scan abdomen pelvis 11/21/2017 TECHNIQUE : 2 views of the abdomen. FINDINGS: No acute change. Bowel gas throughout the large and small bowel loop without abnormal bowel dilatation. There is a moderate to large-volume of stool throughout the colon. The volume of stool in the colon is similar to the CAT scan of 11/21/2016. There is degenerative spondylosis spine with disc height narrowing and plate spurring of the vertebrae. Transit pedicle screws at L4-L5. IMPRESSION: Moderate to large-volume of stool throughout the colon. Nonobstructive bowel pattern. No substantial change since exam of 11/21/2017. DICTATED BY: David Underwood MD DATE/TIME DICTATED :12/01/172009 SEISMIC PROSPECTING SUPERVISOR:FRANKLIN DATE/TIME TRANSCRIBED:12/01/172009 CONFIDENTIAL, DO NOT COPY WITHOUT APPROPRIATE AUTHORIZATION. < Electronically signed in Other Vendor System> SIGNED BY: David Underwood MD 2015 Initial ED EKG: none Hand-Off Endorsed To: Titi Cisse MD Endorsed Time: 2239 Pending: consult (case mangement) (Mani Hernandez) Departure Departure Disposition: STILL A PATIENT Condition: Stable Clinical Impression Primary Impression: Constipation Referrals: Eloina Duvall MD (PCP/Family) Departure Forms: Customer Survey General Discharge Information Prescriptions: Current Visit Scripts Polyethylene Glycol 3350 (Miralax) 17 GM PO BID #[id number] GM Ref 1 mix with water, juice, soda, coffee or tea Docusate Sodium (Colace) 1 CAP PO BID #60 CAP (Mani Hernandez) Departure Comments pt signed out to dr. barba, 12/02/17, 7am... awaiting ride. PA/MATERIAL CREW SUPERVISOR Co-Sign Statement Statement: ED Attending supervision documentation- X[] I saw and evaluated the patient. I have also reviewed all the pertinent lab results and diagnostic results. I agree with the findings and the plan of care as documented in the PA's/MATERIAL CREW SUPERVISOR's documentation. 12/02/17, 23:15... discussed at length with patient and son. He wishes to drink the golytely in the ED with an anticipated discharge at 5am today. On exam, his abd is soft, non tender, without distension... we discussed increasing his miralax to twice a day... also added colace bid. 12/02/17, 4:45am... pt comfortable in the ED and feels good about going home. [] I have reviewed the ED Record and agree with the PA's/MATERIAL CREW SUPERVISOR's documentation. [] Additions or exceptions (if any) to the PAs/MATERIAL CREW SUPERVISOR's note and plan are summarized below: [] (Betito STORY,Titi Omer)
[2017-12-01 19:13] LABS: ABSOLUTE BASOPHIL COUNT 0.1 /CUMM (0.0-0.2); ABSOLUTE EOSINOPHIL COUNT 0.3 /CUMM (0.0-0.7); ABSOLUTE GRANULOCYTE CT 3.2 /CUMM (1.4-6.5); ABSOLUTE MONOCYTE COUNT 0.9 /CUMM (0.10-0.60); BASOPHIL % 0.8 % (0.0-2.0); EOSINOPHIL % 5.2 % (0-5); GRANULOCYTE % 49.6 % (42.2-75.2); HEMATOCRIT 35.8 % (42-52); MEAN CORPUSCULAR HGB 26.9 PG (27.0-31.0); MEAN CORPUSCULAR HGB CONC 33.4 G/DL (33.0-37.0); MEAN CORPUSCULAR VOLUME 80.4 FL (80.0-94.0); MEAN PLATELET VOLUME 7.5 FL (7.4-10.4); PLATELET COUNT 275 /CUMM (130-400); RBC DISTRIBUTION WIDTH 18.3 % (11.5-14.5); RED BLOOD CELL CT 4.45 /CUMM (4.70-6.10); WHITE BLOOD CELL COUNT 6.5 /CUMM (4.8-10.8)
--- NOTE | 2017-12-01 20:16 | RADIOLOGY REPORT ---
EXAMINATION: XR ABDOMEN MULTIPLE VIEWS CLINICAL INDICATION: Constipation COMPARISON: CT scan abdomen pelvis 11/21/2017 TECHNIQUE: 2 views of the abdomen. FINDINGS: No acute change. Bowel gas throughout the large and small bowel loop without abnormal bowel dilatation. There is a moderate to large-volume of stool throughout the colon. The volume of stool in the colon is similar to the CAT scan of 11/21/2016. There is degenerative spondylosis spine with disc height narrowing and plate spurring of the vertebrae. Transit pedicle screws at L4-L5. IMPRESSION: Moderate to large-volume of stool throughout the colon. Nonobstructive bowel pattern. No substantial change since exam of 11/21/2017.
[2017-12-01] MEDS ORDERED: COLACE100 M1 PO (22:34)
[2017-12-01] MEDS ORDERED: MIRALAX119 GM PO (22:34)
[2017-12-02 05:53] VITALS: BP 127/55
== END 2017-12-02 06:56 ==
LOC: ERH 18:24
PROVIDERS: Physician Assistant Medical
DX: K59.00 Constipation, unspecified (principal); R10.32 Left lower quadrant pain; I10 Essential (primary) hypertension
CPT/HCPCS: 74021; 81001; 87086